=== PATIENT | female | born 1940 | race American Indian/Alaskan Native ===

== ENCOUNTER 2019-03-07 13:18 | Inpatient (IN) | payer MEDICARE ==
[2019-03-07] MEDS ORDERED: SODIUM CHLORIDE 0.9% 1000 ML 1,000 ML ONE (14:26)
[2019-03-07] MEDS ORDERED: SODIUM CHLORIDE 0.9% 500 ML 500 ML IV ONE (14:32)
[2019-03-07] MEDS ORDERED: SODIUM CHLORIDE 0.9% 1000 ML IV SOLN IV ONE (14:39)
--- NOTE | 2019-03-07 15:09 | XRay Report ---
CHEST 1 VIEW INDICATION: hypotension,weakness,possible Sepsis. COMPARISON: None. FINDINGS: Support devices: Right-sided central venous catheter tip projects at the SVC/right atrial junction. C ardiac lead projects in expected position. Heart: Cardiac silhouette is mildly enlarged. Lungs/Pleura: There is limited evaluation of the retrocardiac left lung base. Accounting for this, sharad ngs are clear. No significant effusion, no pneumothorax. IMPRESSION: 1. No acute findings. Signer Name: Abbe Casey MD Signed: 03/07/2019 3:05 PM Workstation Name: [email or web address]
[2019-03-07 15:32] LABS: Hematocrit 29.7 % (30.3-42.9); Hemoglobin 8.9 gm/dl (10.1-14.3); Mean Corpuscular HGB Conc 30 % (30-34); Mean Corpuscular Volume 86 fl (79-97); Platelet Count 328 K/mm3 (140-440); Red Blood Count 3.44 M/mm3 (3.65-5.03); Red Cell Distribution Width 17.8 % (13.2-15.2)
[2019-03-07 15:40] LABS: INR 1.31 (0.87-1.13)
[2019-03-07] MEDS ORDERED: PIPERACIL/TAZOBACTA 4.5/NS 100 4.5 GM/100 ML VIAL IV ONE (15:40)
[2019-03-07] MEDS ORDERED: VANCOMYCIN/NS 1 GM/250 ML 1 GM/250 ML BAG IV ONE (15:40)
[2019-03-07 15:51] LABS: Albumin 2.9 g/dL (3.9-5); Calcium 8.7 mg/dL (8.4-10.2)
[2019-03-07 16:03] LABS: Chol/HDL Ratio 2.1 %
[2019-03-07 16:25] LABS: Band Neutrophils # (Manual) 0.2 K/mm3; Basophils % (Manual) 0 % (0.0-1.8); Total Cells Counted 100
--- NOTE | 2019-03-07 16:25 | Emergency Department Report ---
- General Chief complaint: Weakness Stated complaint: HYPOTENSION Time Seen by Provider: 03/07/19 14:31 Source: patient, EMS Mode of arrival: Stretcher Limitations: No Limitations - History of Present Illness Initial comments: 78-year-old female with a past medical history of end-stage renal disease on dialysis, hypertension, diabetes, GERD, craniotomy for brain tumor, seizure, c ardiac stent, and pacemaker presents to the hospital for hypotension. Patient went to her dialysis center as scheduled with her blood pressure was 76/36. Patient was then sent to the ER without dialysis. Patient is lethargic and oriented to self only and knows she is at a hospital at time of my evaluation. She complains of lower back pain but unsure how chronic this is. She is overall very poor historian. Complains of abdominal pain and chest pain sometimes but denies current chest or abdominal pain. - Related Data Home Medications Medication Instructions Recorded Confirmed Last Taken Aspirin 325 mg PO DAILY 08/08/13 08/20/13 Unknown Gabapentin 300 mg PO TID 08/08/13 08/20/13 08/19/13 20:00 Iron Ag/C/B12/Ca/Suc.acid/Stom 1 tab PO DAILY 08/08/13 08/20/13 08/19/13 19:00 [Multigen Caplet] Loratadine [Claritin] 10 mg PO DAILY 08/08/13 08/20/13 08/19/13 11:00 Niacin (Nf) [Niacin] 500 mg PO DAILY 08/08/13 08/20/13 08/19/13 11:00 Potassium Chloride 10 meq PO DAILY 08/08/13 08/20/13 08/19/13 11:00 Sertraline [Zoloft] 25 mg PO DAILY 08/08/13 08/20/13 08/19/13 11:00 Simvastatin 40 mg PO DAILY 08/08/13 08/20/13 08/19/13 11:00 Topiramate [Topamax TAB] 50 mg PO HS 08/08/13 08/20/13 08/19/13 20:00 carvediloL [Coreg] 25 mg PO BID 08/08/13 08/20/13 08/20/13 07:25 hydrOXYzine HCL [Atarax] 25 mg PO TID 08/08/13 08/20/13 08/19/13 20:00 levETIRAcetam [Keppra TAB] 500 mg PO BID 08/08/13 08/20/13 08/19/13 20:00 Previous Rx's Medication Instructions Recorded Last Taken Type Acetaminophen/Codeine [Tylenol #3] 1 tab PO Q6H PRN #20 tab 08/20/13 Unknown Rx Allergies Allergy/AdvReac Type Severity Reaction Status Date / Time No Known Allergies Allergy Unverified 08/08/13 14:09 ED Review of Systems ROS: Stated complaint: HYPOTENSION Other details as noted in HPI Comment: All other systems reviewed and negative (limited) ED Past Medical Hx - Past Medical History Previous Medical History?: Yes Hx Hypertension: Yes (takes carvidolol) Hx Diabetes: Yes Hx GERD: Yes Hx Renal Disease: No Hx Arthritis: Yes Hx Seizures: Yes (had cranitomy for brain tumor) - Surgical History Hx Coronary Stent: Yes Hx Pacemaker: Yes (pt not sure why she has a pacemaker) Hx Internal Defibrillator: No - Social History Smoking Status: Never Smoker Substance Use Type: None - Medications Home Medications: Home Medications Medication Instructions Recorded Confirmed Last Taken Type Aspirin 325 mg PO DAILY 08/08/13 08/20/13 Unknown History Gabapentin 300 mg PO TID 08/08/13 08/20/13 08/19/13 20:00 History Iron Ag/C/B12/Ca/Suc.acid/Stom 1 tab PO DAILY 08/08/13 08/20/13 08/19/13 19:00 History [Multigen Caplet] Loratadine [Claritin] 10 mg PO DAILY 08/08/13 08/20/13 08/19/13 11:00 History Niacin (Nf) [Niacin] 500 mg PO DAILY 08/08/13 08/20/13 08/19/13 11:00 History Potassium Chloride 10 meq PO DAILY 08/08/13 08/20/13 08/19/13 11:00 History Sertraline [Zoloft] 25 mg PO DAILY 08/08/13 08/20/13 08/19/13 11:00 History Simvastatin 40 mg PO DAILY 08/08/13 08/20/13 08/19/13 11:00 History Topiramate [Topamax TAB] 50 mg PO HS 08/08/13 08/20/13 08/19/13 20:00 History carvediloL [Coreg] 25 mg PO BID 08/08/13 08/20/13 08/20/13 07:25 History hydrOXYzine HCL [Atarax] 25 mg PO TID 08/08/13 08/20/13 08/19/13 20:00 History levETIRAcetam [Keppra TAB] 500 mg PO BID 08/08/13 08/20/13 08/19/13 20:00 History Acetaminophen/Codeine [Tylenol #3] 1 tab PO Q6H PRN #20 tab 08/20/13 Unknown Rx ED Physical Exam - General Limitations: No Limitations - Other Other exam information: General: No acute distress Head: Atraumatic Eyes: normal appearance ENT: Moist mucous membranes Neck: Normal appearance, no midline tenderness Chest: Clear to auscultation bilaterally CV: Regular rate and rhythm Abdomen: Soft, normal bowel sounds, nontender, nondistended, no rebound or guarding Back: Normal inspection, diffuse lumbar tenderness Extremity: left leg aka Neuro: Alert O x 3, no facial asymmetry, speech clear, no gross motor sensory deficit Psych: Appropriate behavior Skin: right leg wound ED Course Vital Signs 03/07/19 03/07/19 03/07/19 14:00 14:06 14:10 Pulse Rate 67 68 Respiratory 24 26 H Rate Blood Pressure 68/29 68/29 O2 Sat by Pulse 100 100 100 Oximetry 03/07/19 03/07/19 03/07/19 14:16 14:20 15:21 Pulse Rate 71 72 73 Respiratory 19 34 H 20 Rate Blood Pressure 68/29 57/25 57/25 O2 Sat by Pulse 100 100 98 Oximetry 03/07/19 15:26 Pulse Rate 73 Respiratory 20 Rate Blood Pressure 57/25 O2 Sat by Pulse 98 Oximetry - Reevaluation(s) Reevaluation #1: 03/07/19 16:36 sbp 104 at this time after 1.5L of Normal saline. this is the pts baseline as per recent hx. 30m/kg bolus of Normal saline initially ordered at 2750ml bolus discontinued since MAP greater than 65 and no lactic acidosis so suggest septic shock. Emprically receiving vanc and zosyn 03/07/19 17:[address] sbp 70's again, fluids restarted. pt's accurate vital need to be captured into chart by nurse - Consultations Consultation #1: 03/07/19 16:23 case d/w DR Angelica smalls, familiar with pt and states recently admitted to a [facility] and had him overload and prolonged course of intubation. She had a multiple dialysis sessions performed to remove fluid and suggest that she might be dehydrated. ED Medical Decision Making - Lab Data Result diagrams: 03/07/19 15:07 03/07/19 15:07 Lab Results 03/07/19 03/07/19 03/07/19 Range/Units 15:07 15:07 15:07 WBC 17.1 H (4.5-11.0) K/mm3 RBC 3.44 L (3.65-5.03) M/mm3 Hgb 8.9 L (10.1-14.3) gm/dl Hct 29.7 L (30.3-42.9) % MCV 86 (79-97) fl MCH 26 L (28-32) pg MCHC 30 (30-34) % RDW 17.8 H (13.2-15.2) % Plt Count 328 (140-440) K/mm3 Add Manual Diff Complete Total Counted 100 Seg Neuts % (Manual) 73.0 H (40.0-70.0) % Band Neutrophils % 1.0 % Lymphocytes % (Manual) 16.0 (13.4-35.0) % Reactive Lymphs % (Man) 0 % Monocytes % (Manual) 3.0 (0.0-7.3) % Eosinophils % (Manual) 5.0 H (0.0-4.3) % Basophils % (Manual) 0 (0.0-1.8) % Metamyelocytes % 2.0 % Myelocytes % 0 % Promyelocytes % 0 % Blast Cells % 0 % Nucleated RBC % 1.0 H (0.0-0.9) % Seg Neutrophils # Man 12.5 H (1.8-7.7) K/mm3 Band Neutrophils # 0.2 K/mm3 Lymphocytes # (Manual) 2.7 (1.2-5.4) K/mm3 Abs React Lymphs (Man) 0.0 K/mm3 Monocytes # (Manual) 0.5 (0.0-0.8) K/mm3 Eosinophils # (Manual) 0.9 H (0.0-0.4) K/mm3 Basophils # (Manual) 0.0 (0.0-0.1) K/mm3 Metamyelocytes # 0.3 K/mm3 Myelocytes # 0.0 K/mm3 Promyelocytes # 0.0 K/mm3 Blast Cells # 0.0 K/mm3 WBC Morphology Not Reportable Hypersegmented Neuts Not Reportable Hyposegmented Neuts Not Reportable Hypogranular Neuts Not Reportable Smudge Cells Not Reportable Toxic Granulation Not Reportable Toxic Vacuolation Not Reportable Dohle Bodies Not Reportable Pelger-Huet Anomaly Not Reportable Dany Rods Not Reportable Platelet Estimate Consistent w auto Clumped Platelets Not Reportable Plt Clumps, EDTA Not Reportable Large Platelets Few Giant Platelets Not Reportable Platelet Satelliting Not Reportable Plt Morphology Comment Not Reportable RBC Morphology Not Reportable Dimorphic RBCs Not Reportable Polychromasia Few Hypochromasia Not Reportable Poikilocytosis Not Reportable Anisocytosis Not Reportable Microcytosis Few Macrocytosis Few Spherocytes Not Reportable Pappenheimer Bodies Not Reportable Sickle Cells Not Reportable Target Cells Not Reportable Tear Drop Cells Not Reportable Ovalocytes Not Reportable Helmet Cells Not Reportable Hernandez-[place] Bodies Not Reportable Blackwell Rings Not Reportable Jaylene Cells Not Reportable Bite Cells Not Reportable Crenated Cell Not Reportable Elliptocytes Not Reportable Acanthocytes (Spur) Not Reportable Rouleaux Not Reportable Hemoglobin C Crystals Not Reportable Schistocytes Not Reportable Malaria parasites Not Reportable Markos Bodies Not Reportable Hem Pathologist Commnt No PT 16.1 H (12.2-14.9) Sec. INR 1.31 H (0.87-1.13) VBG pH (7.320-7.420) Sodium 138 (137-145) mmol/L Potassium 4.8 (3.6-5.0) mmol/L Chloride 98.8 (98-107) mmol/L Carbon Dioxide 20 L (22-30) mmol/L Anion Gap 24 mmol/L BUN 45 H (7-17) mg/dL Creatinine 4.9 H (0.7-1.2) mg/dL Estimated GFR 10 ml/min BUN/Creatinine Ratio 9 % Glucose 110 H (65-100) mg/dL Lactic Acid (0.7-2.0) mmol/L Calcium 8.7 (8.4-10.2) mg/dL Total Bilirubin 0.50 (0.1-1.2) mg/dL AST 20 (5-40) units/L ALT 19 (7-56) units/L Alkaline Phosphatase 131 H (35-129) units/L Troponin T (0.00-0.029) ng/mL Total Protein 8.6 H (6.3-8.2) g/dL Albumin 2.9 L (3.9-5) g/dL Albumin/Globulin Ratio 0.5 % Triglycerides (2-149) mg/dL Cholesterol (50-199) mg/dL LDL Cholesterol Direct (50-130) mg/dL HDL Cholesterol (40-59) mg/dL Cholesterol/HDL Ratio % 03/07/19 03/07/19 03/07/19 Range/Units 15:07 15:07 15:14 WBC (4.5-11.0) K/mm3 RBC (3.65-5.03) M/mm3 Hgb (10.1-14.3) gm/dl Hct (30.3-42.9) % MCV (79-97) fl MCH (28-32) pg MCHC (30-34) % RDW (13.2-15.2) % Plt Count (140-440) K/mm3 Add Manual Diff Total Counted Seg Neuts % (Manual) (40.0-70.0) % Band Neutrophils % % Lymphocytes % (Manual) (13.4-35.0) % Reactive Lymphs % (Man) % Monocytes % (Manual) (0.0-7.3) % Eosinophils % (Manual) (0.0-4.3) % Basophils % (Manual) (0.0-1.8) % Metamyelocytes % % Myelocytes % % Promyelocytes % % Blast Cells % % Nucleated RBC % (0.0-0.9) % Seg Neutrophils # Man (1.8-7.7) K/mm3 Band Neutrophils # K/mm3 Lymphocytes # (Manual) (1.2-5.4) K/mm3 Abs React Lymphs (Man) K/mm3 Monocytes # (Manual) (0.0-0.8) K/mm3 Eosinophils # (Manual) (0.0-0.4) K/mm3 Basophils # (Manual) (0.0-0.1) K/mm3 Metamyelocytes # K/mm3 Myelocytes # K/mm3 Promyelocytes # K/mm3 Blast Cells # K/mm3 WBC Morphology Hypersegmented Neuts Hyposegmented Neuts Hypogranular Neuts Smudge Cells Toxic Granulation Toxic Vacuolation Dohle Bodies Pelger-Huet Anomaly Dany Rods Platelet Estimate Clumped Platelets Plt Clumps, EDTA Large Platelets Giant Platelets Platelet Satelliting Plt Morphology Comment RBC Morphology Dimorphic RBCs Polychromasia Hypochromasia Poikilocytosis Anisocytosis Microcytosis Macrocytosis Spherocytes Pappenheimer Bodies Sickle Cells Target Cells Tear Drop Cells Ovalocytes Helmet Cells Hernandez-[place] Bodies [place] Rings [place] Cells Bite Cells Crenated Cell Elliptocytes Acanthocytes (Spur) Rouleaux Hemoglobin C Crystals Schistocytes Malaria parasites Markos Bodies Hem Pathologist Commnt PT (12.2-14.9) Sec. INR (0.87-1.13) VBG pH 7.365 (7.320-7.420) Sodium (137-145) mmol/L Potassium (3.6-5.0) mmol/L Chloride (98-107) mmol/L Carbon Dioxide (22-30) mmol/L Anion Gap mmol/L BUN (7-17) mg/dL Creatinine (0.7-1.2) mg/dL Estimated GFR ml/min BUN/Creatinine Ratio % Glucose (65-100) mg/dL Lactic Acid 1.80 (0.7-2.0) mmol/L Calcium (8.4-10.2) mg/dL Total Bilirubin (0.1-1.2) mg/dL AST (5-40) units/L ALT (7-56) units/L Alkaline Phosphatase (35-129) units/L Troponin T 0.039 H (0.00-0.029) ng/mL Total Protein (6.3-8.2) g/dL Albumin (3.9-5) g/dL Albumin/Globulin Ratio % Triglycerides 122 (2-149) mg/dL Cholesterol 78 (50-199) mg/dL LDL Cholesterol Direct 19 L (50-130) mg/dL HDL Cholesterol 37 L (40-59) mg/dL Cholesterol/HDL Ratio 2.10 % - EKG Data -: EKG Interpreted by Ga EKG shows normal: sinus rhythm, ST-T waves (no stemi) Rate: normal (75) - Radiology Data Radiology results: report reviewed CHEST 1 VIEW INDICATION: hypotension,weakness,possible Sepsis. COMPARISON: None. FINDINGS: Support devices: Right-sided central venous catheter tip projects at the SVC/right atrial junction. Cardiac lead projects in expected position. Heart: Cardiac silhouette is mildly enlarged. Lungs/Pleura: There is limited evaluation of the retrocardiac left lung base. Accounting for this, lungs are clear. No significant effusion, no pneumothorax. IMPRESSION: 1. No acute findings. CT head/brain wo con INDICATION / CLINICAL INFORMATION: 78 years Female; ams, lethargic, hypotension. TECHNIQUE: Routine CT head without contrast. All CT scans at this location are performed using CT dose reduction for ALARA by means of automated exposure control. COMPARISON: 11/15/2008 FINDINGS: BRAIN / INTRACRANIAL CONTENTS: Prior, bifrontal craniectomy site noted. Underlying encephalomalacia seen in the frontal lobes - right greater than left. Ventricular catheter is seen entering the calvarium via a posterior approach with distal tip projecting towards the atrium of the right lateral ventricle. Minimal encephalomalacia is suggested along the catheter tract. Similar type findings seen on prior. There may be slight decrease in waggoner/white differentiation in the right gangliocapsular region, when compared with the left. However, similar type pattern is seen on prior and may be related to the d iscontinuity of the remaining frontal bone structures. Otherwise, no acute hemorrhage, mass effect, midline shift, hydrocephalus, or acute, large territorial infarct. There are moderate areas of decreased attenuation in the white matter of the cerebral hemispheres, as well as the gangliocapsular reg ions. These are nonspecific findings and may be related to microangiopathy (hypertension, diabetes, atherosclerosis), given the patient's age. It would be difficult to evaluate for small areas of ischemia without diffusion imaging by MRI. These findings have progressed from prior. CRANIOCERVICAL JUNCTION: No significant abnormality. ORBITS: No significant abnormality of visualized orbits. SINUSES / MASTOIDS: Prior, extensive sinus surgery noted. There is near complete opacification of the mastoid air cells. Mucosal thickening seen in the right middle ear cavity. Mild mucosal thickening seen in the left mastoid region. ADDITIONAL FINDINGS: None. IMPRESSION: 1. No focal mass, hemorrhage, hydrocephalus, or acute, large territorial infarct. Follow-up with diffusion imaging by MRI, as clinically warranted. . CT of the abdomen and pelvis without contrast INDICATION: Hypertension COMPARISON: None FINDINGS: Pacemaker lead is in place. Small pericardial effusio n is seen without pleural fluid. There is slight basilar atelectasis. There are several ill-defined hepatic low densities which are likely metastases. The spleen, pancreas and right adrenal gland are normal. Left kidney is grossly normal as well. The upper pole right kidney contains a 4.6 x 4.2 cm low density with Hounsfield units of 13 indicating this is likely a cyst. Smaller low density in the right midpole is likely a cyst as well. The left adrenal gland contains a heterogeneous 5 x 3.5 cm mass which contains fat consistent with an adrenal myelolipoma. Small gallstones are seen with distended gallbladder but no cholecystitis. No biliary tree dilation. There is no hemorrhage or adenopathy in the upper abdomen. Shunt tubing is seen over the anterior abdomen. CT of the pelvis shows evidence of left hemipelvectomy. Postoperative changes are seen with a left flank hernia containing colon but no obstruction. There is sigmoid diverticulosis without diverticulitis. Uterus has been removed. Right ovarian cyst appears present. Fat-containing ventral hernia is seen with herniated fat or lipomas in the right upper thigh. There is no pelvic hemorrhage or inflammatory process with the findings appearing to be chronic. No skeletal metastases identified. There is no aortic aneurysm seen. IMPRESSION: 1. Low density liver lesions suspicious for metastases. No definite primary tumor is seen. 2. Extensive postoperative changes in the pelvis but no inflammatory process or hemorrhage identified. 3. Multiple incidental findings as described. Automated exposure control was utilized to diminish radiation dose. - Medical Decision Making Patient initially as well as IV fluid bolus then blood pressure decreased again. . Patient treated with antibiotics for sepsis although no source of infection has been identified. Also possibility of dehydration given her recent history of aggressive dialysis due to volume overload during admission. Case discussed with telegraph office manager who states that her blood pressure prior to discharge was 100/70. Imaging results reviewed. Patient discussed with hospitalist service. Dr. Cordero to admit - Differential Diagnosis sepsis, volume depletion, anemia, Critical Care Time: No Critical care attestation.: If time is entered above; I have spent that time in minutes in the direct care of this critically ill patient, excluding procedure time. ED Disposition Clinical Impression: Hypotension, ESRD (end stage renal disease) on dialysis Disposition: OP ADMIT IP TO THIS HOSP Is pt being admited?: Yes Condition: Stable Time of Disposition: 18:01 (Dr Cordero/hosp)
[2019-03-07] MEDS ORDERED: VANCOMYCIN 1,750 MG in SODIUM CHLORIDE 0.9% 500 ML 500 ML IV ONE (16:30)
[2019-03-07 16:31] LABS: Macrocytosis Few
[2019-03-07 16:32] LABS: Large Platelets Few; Platelet Estimate Consistent w Auto
--- NOTE | 2019-03-07 17:13 | Cat Scan Report ---
CT head/brain wo con INDICATION / CLINICAL INFORMATION: 78 years Female; ams, lethargic, hypotension. TECHNIQUE: Routine CT head without contrast. All CT scans at this location are performed using CT dos e reduction for ALARA by means of automated exposure control. COMPARISON: 11/15/2008 FINDINGS: BRAIN / INTRACRANIAL CONTENTS: Prior, bifrontal craniectomy site noted. Underlying encephalomalacia s een in the frontal lobes - right greater than left. Ventricular catheter is seen entering the calvari um via a posterior approach with distal tip projecting towards the atrium of the right lateral ventri abhijeet. Minimal encephalomalacia is suggested along the catheter tract. Similar type findings seen on pr ior. There may be slight decrease in waggoner/white differentiation in the right gangliocapsular region, when compared with the left. However, similar type pattern is seen on prior and may be related to the disc ontinuity of the remaining frontal bone structures. Otherwise, no acute hemorrhage, mass effect, midline shift, hydrocephalus, or acute, large territori al infarct. There are moderate areas of decreased attenuation in the white matter of the cerebral he mispheres, as well as the gangliocapsular regions. These are nonspecific findings and may be related to microangiopathy (hypertension, diabetes, atherosclerosis), given the patient's age. It would be di fficult to evaluate for small areas of ischemia without diffusion imaging by MRI. These findings have progressed from prior. CRANIOCERVICAL JUNCTION: No significant abnormality. ORBITS: No significant abnormality of visualized orbits. SINUSES / MASTOIDS: Prior, extensive sinus surgery noted. There is near complete opacification of the mastoid air cells. Mucosal thickening seen in the right middle ear cavity. Mild mucosal thickening s een in the left mastoid region. ADDITIONAL FINDINGS: None. IMPRESSION: 1. No focal mass, hemorrhage, hydrocephalus, or acute, large territorial infarct. Follow-up with diff usion imaging by MRI, as clinically warranted. Signer Name: Shane Lange MD, III Signed: 03/07/2019 5:09 PM Workstation Name: [id number]
--- NOTE | 2019-03-07 17:23 | Cat Scan Report ---
. CT of the abdomen and pelvis without contrast INDICATION: Hypertension COMPARISON: None FINDINGS: Pacemaker lead is in place. Small pericardial effusion is seen without pleural fluid. There is slight basilar atelectasis. There are several ill-defined hepatic low densities which are likely metastases. The spleen, pancreas and right adrenal gland are normal. Left kidney is grossly normal as well. The upper pole right kidney contains a 4.6 x 4.2 cm low density with Hounsfield units of 13 in dicating this is likely a cyst. Smaller low density in the right midpole is likely a cyst as well. Th e left adrenal gland contains a heterogeneous 5 x 3.5 cm mass which contains fat consistent with an a drenal myelolipoma. Small gallstones are seen with distended gallbladder but no cholecystitis. No ursula iary tree dilation. There is no hemorrhage or adenopathy in the upper abdomen. Shunt tubing is seen o jackie the anterior abdomen. CT of the pelvis shows evidence of left hemipelvectomy. Postoperative changes are seen with a left fl ank hernia containing colon but no obstruction. There is sigmoid diverticulosis without diverticuliti s. Uterus has been removed. Right ovarian cyst appears present. Fat-containing ventral hernia is seen with herniated fat or lipomas in the right upper thigh. There is no pelvic hemorrhage or inflammator y process with the findings appearing to be chronic. No skeletal metastases identified. There is no a ortic aneurysm seen. IMPRESSION: 1. Low density liver lesions suspicious for metastases. No definite primary tumor is seen. 2. Extensive postoperative changes in the pelvis but no inflammatory process or hemorrhage identified . 3. Multiple incidental findings as described. Automated exposure control was utilized to diminish radiation dose. Signer Name: Dani Barton MD Signed: 03/07/2019 5:18 PM Workstation Name: [id number]
--- NOTE | 2019-03-07 21:18 | Consultation ---
History of Present Illness - Reason for Consult Consult date: 03/07/19 Requesting physician: SEKOU SIGALA - History of Present Illness The patient is a 78 YO female with history significant for Obesity,HTN,DM type 2,nonischemic cardiomyopathys/p AICD, CKD stage 4,Seizure disorder,Hx of Brain CAand left AKA (remote bone cancer)whopresented from the hemodialysis unit [facility] ED 03/07 with hypotension. Patient was recently admitted at [facility] between 02/02/2019 and 03/05/2019 for treatment of Septic shock, Hypoxic respiratory failure, s/p cardiac arrest, Acute encephalopathy, acute kidney injury on dialysis and anemia. Today her BP was in 70/30s in the dialysis unit. In the ED pt washypotensive and confused. She received IV fluid bolus with improvement in the BP. Labs significant for leukocytosis and creatinine 4.9. Pt was admitted for further evaluation. Nephrology was consulted for further evaluation and treatment. Past History Past Medical History: diabetes, dialysis, ESRD, hypertension, other (See HPI.) Medications and Allergies Allergies Allergy/AdvReac Type Severity Reaction Status Date / Time morphine Allergy Swelling Uncoded 03/08/19 02:11 Home Medications Medication Instructions Recorded Confirmed Last Taken Type Aspirin 325 mg PO DAILY 08/08/13 03/08/19 Unknown History Gabapentin 300 mg PO TID 08/08/13 03/08/19 08/19/13 20:00 History Iron Ag/C/B12/Ca/Suc.acid/Stom 1 tab PO DAILY 08/08/13 03/08/19 08/19/13 19:00 History [Multigen Caplet] Loratadine [Claritin] 10 mg PO DAILY 08/08/13 03/08/19 08/19/13 11:00 History Sertraline [Zoloft] 50 mg PO DAILY 08/08/13 03/08/19 08/19/13 11:00 History Simvastatin 40 mg PO DAILY 08/08/13 03/08/19 08/19/13 11:00 History Topiramate [Topamax TAB] 50 mg PO HS 08/08/13 03/08/19 08/19/13 20:00 History carvediloL [Coreg] 25 mg PO BID 08/08/13 03/08/19 08/20/13 07:25 History hydrOXYzine HCL [Atarax] 25 mg PO TID 08/08/13 03/08/19 08/19/13 20:00 History levETIRAcetam [Keppra TAB] 500 mg PO BID 08/08/13 03/08/19 08/19/13 20:00 History Acetaminophen/Codeine [Tylenol #3] 1 tab PO Q6H PRN #20 tab 08/20/13 03/08/19 Unknown Rx Indomethacin [Indocin] 50 mg PO BID PRN 03/08/19 03/08/19 Unknown History Losartan/Hydrochlorothiazide 1 each PO QDAY 03/08/19 03/08/19 Unknown History [Losartan-Hctz 50-12.5 mg Tab] Montelukast [Singulair] 10 mg PO QPM 03/08/19 03/08/19 Unknown History Potassium Chloride [K-Dur] 10 meq PO BID 03/08/19 03/08/19 Unknown History Review of Systems ROS unobtainable: due to mental status Exam - Physical Exam Narrative exam: Kelly Madrid not examined today. However the current and previous medical records are reviewed in detail as are laboratory and imaging data reviewed when appropriate. Medications being given are also reviewed. In addition the case has been discussed with the attending hospitalist and ED physician when needed.Newrenalrecommendations as below. - Constitutional Vitals: Temp Pulse Resp BP Pulse Ox 83 17 90/57 100 03/07/19 18:50 03/07/19 18:50 03/07/19 18:50 03/07/19 18:50 Results - Labs CBC & Chem 7: 03/08/19 07:27 03/08/19 07:27 Labs: Abnormal lab results 03/07/19 03/07/19 03/07/19 Range/Units 15:07 15:07 15:07 WBC 17.1 H (4.5-11.0) K/mm3 RBC 3.44 L (3.65-5.03) M/mm3 Hgb 8.9 L (10.1-14.3) gm/dl Hct 29.7 L (30.3-42.9) % MCH 26 L (28-32) pg RDW 17.8 H (13.2-15.2) % Seg Neuts % (Manual) 73.0 H (40.0-70.0) % Eosinophils % (Manual) 5.0 H (0.0-4.3) % Nucleated RBC % 1.0 H (0.0-0.9) % Seg Neutrophils # Man 12.5 H (1.8-7.7) K/mm3 Eosinophils # (Manual) 0.9 H (0.0-0.4) K/mm3 PT 16.1 H (12.2-14.9) Sec. INR 1.31 H (0.87-1.13) Carbon Dioxide 20 L (22-30) mmol/L BUN 45 H (7-17) mg/dL Creatinine 4.9 H (0.7-1.2) mg/dL Glucose 110 H (65-100) mg/dL Alkaline Phosphatase 131 H (35-129) units/L Troponin T (0.00-0.029) ng/mL Total Protein 8.6 H (6.3-8.2) g/dL Albumin 2.9 L (3.9-5) g/dL LDL Cholesterol Direct (50-130) mg/dL HDL Cholesterol (40-59) mg/dL 03/07/19 03/07/19 Range/Units 15:14 18:06 WBC (4.5-11.0) K/mm3 RBC (3.65-5.03) M/mm3 Hgb (10.1-14.3) gm/dl Hct (30.3-42.9) % MCH (28-32) pg RDW (13.2-15.2) % Seg Neuts % (Manual) (40.0-70.0) % Eosinophils % (Manual) (0.0-4.3) % Nucleated RBC % (0.0-0.9) % Seg Neutrophils # Man (1.8-7.7) K/mm3 Eosinophils # (Manual) (0.0-0.4) K/mm3 PT (12.2-14.9) Sec. INR (0.87-1.13) Carbon Dioxide (22-30) mmol/L BUN (7-17) mg/dL Creatinine (0.7-1.2) mg/dL Glucose (65-100) mg/dL Alkaline Phosphatase (35-129) units/L Troponin T 0.039 H 0.035 H (0.00-0.029) ng/mL Total Protein (6.3-8.2) g/dL Albumin (3.9-5) g/dL LDL Cholesterol Direct 19 L (50-130) mg/dL HDL Cholesterol 37 L (40-59) mg/dL Assessment and Plan 1. Acute kidney injury: VasomotorAKI superimposed on CKD in the setting ofhypotension/ septic shock. Most likely ATN. GIOVANNY, ANCA, Complements and SPEP are normal / negative. No renal recoveryso far. Renal prognosis is guarded to poor. Suspect ESRD. Avoid nephrotoxic agents. Meds dosage based on GFR. Patient is on maintenance hemodialysis since 02/08/2019. HD when BP is better. Patient will be starting outpatient hemodialysis at [facility] 03/07/2019. 2. FEN: Volume depletion,IV fluids. Anion-gap MA,2/2 PAULA. Monitor lytes. 3. Septic shock: BP is improving. Currently not on pressors. On multiple Abx. 4.H/o Cardiac arrest. 5. Acute encephalopathy. 6.Hepatic Masses. 7.Anemia: POA. S/p PRBC. Epogen with HD.
[2019-03-07] MEDS ORDERED: ACETAMINOPHEN W/CODEINE 300-30 MG TAB PO PRN (23:36)
[2019-03-07] MEDS ORDERED: ACETAMINOPHEN 325 MG TAB PO PRN (23:40)
[2019-03-07] MEDS ORDERED: HYDROmorphone 1 MG/1 ML INJ IV PRN (23:42)
[2019-03-07] MEDS ORDERED: SODIUM CHLORIDE 0.9% 1000 ML 1,000 ML IV SCH (23:45)
--- NOTE | 2019-03-07 23:50 | History and Physical Report ---
History of Present Illness Date of examination: 03/07/19 Date of admission: 03/07/2019 Chief complaint: Severe hypotension History of present illness: 78-year-old -[place] female with history of end-stage renal disease on hemodialysis, hypertension, diabetes, GERD, seizures, cardiac stent and pacemaker sent in for low blood pressure 88 in the emergency room patient blood pressure was 68/29. Patient is lethargic and oriented to self only. Patient feels lightheaded. Complains of abdominal pain and chest pain sometimes. No fever or chills Past Medical History Previous Medical History?: Yes Hypertension: Yes (takes carvidolol) Diabetes: Yes GERD: Yes Renal Disease: No Arthritis: Yes Seizures: Yes (had cranitomy for brain tumor) Surgical History Coronary Stent: Yes Pacemaker: Yes (pt not sure why she has a pacemaker) Social History Smoking Status: Never Smoker Substance Use Type: None Family history Htn Medications Home Medications: Home Medications Medication Instructions Recorded Confirmed Last Taken Type Aspirin 325 mg PO DAILY 08/08/13 08/20/13 Unknown History Gabapentin 300 mg PO TID 08/08/13 08/20/13 08/19/13 20:00 History Iron Ag/C/B12/Ca/Suc.acid/Stom 1 tab PO DAILY 08/08/13 08/20/13 08/19/13 19:00 History [Multigen Caplet] Loratadine [Claritin] 10 mg PO DAILY 08/08/13 08/20/13 08/19/13 11:00 History Niacin (Nf) [Niacin] 500 mg PO DAILY 08/08/13 08/20/13 08/19/13 11:00 History Potassium Chloride 10 meq PO DAILY 08/08/13 08/20/13 08/19/13 11:00 History Sertraline [Zoloft] 25 mg PO DAILY 08/08/13 08/20/13 08/19/13 11:00 History Simvastatin 40 mg PO DAILY 08/08/13 08/20/13 08/19/13 11:00 History Topiramate [Topamax TAB] 50 mg PO HS 08/08/13 08/20/13 08/19/13 20:00 History carvediloL [Coreg] 25 mg PO BID 08/08/13 08/20/13 08/20/13 07:25 History hydrOXYzine HCL [Atarax] 25 mg PO TID 08/08/13 08/20/13 08/19/13 20:00 History levETIRAcetam [Keppra TAB] 500 mg PO BID 08/08/13 08/20/13 08/19/13 20:00 History Acetaminophen/Codeine [Tylenol #3] 1 tab PO Q6H PRN #20 tab 08/20/13 Unknown Rx Review of Systems ROS: Stated complaint: HYPOTENSION Other details as noted in HPI Comment: All other systems reviewed and negative (limited) Medications and Allergies Allergies Allergy/AdvReac Type Severity Reaction Status Date / Time No Known Allergies Allergy Unverified 08/08/13 14:09 Home Medications Medication Instructions Recorded Confirmed Last Taken Type Aspirin 325 mg PO DAILY 08/08/13 08/20/13 Unknown History Gabapentin 300 mg PO TID 08/08/13 08/20/13 08/19/13 20:00 History Iron Ag/C/B12/Ca/Suc.acid/Stom 1 tab PO DAILY 08/08/13 08/20/13 08/19/13 19:00 History [Multigen Caplet] Loratadine [Claritin] 10 mg PO DAILY 08/08/13 08/20/13 08/19/13 11:00 History Niacin (Nf) [Niacin] 500 mg PO DAILY 08/08/13 08/20/13 08/19/13 11:00 History Potassium Chloride 10 meq PO DAILY 08/08/13 08/20/13 08/19/13 11:00 History Sertraline [Zoloft] 25 mg PO DAILY 08/08/13 08/20/13 08/19/13 11:00 History Simvastatin 40 mg PO DAILY 08/08/13 08/20/13 08/19/13 11:00 History Topiramate [Topamax TAB] 50 mg PO HS 08/08/13 08/20/13 08/19/13 20:00 History carvediloL [Coreg] 25 mg PO BID 08/08/13 08/20/13 08/20/13 07:25 History hydrOXYzine HCL [Atarax] 25 mg PO TID 08/08/13 08/20/13 08/19/13 20:00 History levETIRAcetam [Keppra TAB] 500 mg PO BID 05/11/1408/20/13 08/19/13 20:00 History Acetaminophen/Codeine [Tylenol #3] 1 tab PO Q6H PRN #20 tab 08/20/13 Unknown Rx Exam - Constitutional Vitals: Temp Pulse Resp BP Pulse Ox 78 18 68/29 100 03/07/19 23:16 03/07/19 23:16 03/07/19 23:16 03/07/19 23:16 General appearance: Present: no acute distress, well-nourished - EENT Eyes: Present: PERRL ENT: hearing intact, clear oral mucosa - Neck Neck: Present: supple, normal ROM - Respiratory Respiratory effort: normal Respiratory: bilateral: CTA - Cardiovascular Heart rate: 78 Rhythm: regular Heart Sounds: Present: S1 & S2. Absent: rub, click - Extremities Extremities: pulses symmetrical, No edema Extremity abnormal: other (left lower extremity amputation from the hip joint) Peripheral Pulses: within normal limits - Abdominal General gastrointestinal: Present: soft, non-tender, non-distended, normal bowel sounds Female genitourinary: Present: normal - Rectal Rectal Exam: deferred - Integumentary Integumentary: Present: clear, warm, dry - Musculoskeletal Musculoskeletal: gait normal, strength equal bilaterally - Psychiatric Psychiatric: appropriate mood/affect, intact judgment & insight - Neurologic Neurologic: CNII-XII intact, other (left lower extremity amputated) - Allied Health Allied health notes reviewed: nursing Results - Labs CBC & Chem 7: 03/07/19 15:07 03/07/19 15:07 Labs: Laboratory Last Values WBC 17.1 K/mm3 (4.5-11.0) H 03/07/19 15:07 RBC 3.44 M/mm3 (3.65-5.03) L 03/07/19 15:07 Hgb 8.9 gm/dl (10.1-14.3) L 03/07/19 15:07 Hct 29.7 % (30.3-42.9) L 03/07/19 15:07 MCV 86 fl (79-97) 03/07/19 15:07 MCH 26 pg (28-32) L 03/07/19 15:07 MCHC 30 % (30-34) 03/07/19 15:07 RDW 17.8 % (13.2-15.2) H 03/07/19 15:07 Plt Count 328 K/mm3 (140-440) 03/07/19 15:07 Add Manual Diff Complete 03/07/19 15:07 Total Counted 100 03/07/19 15:07 Seg Neuts % (Manual) 73.0 % (40.0-70.0) H 03/07/19 15:07 Band Neutrophils % 1.0 % 03/07/19 15:07 Lymphocytes % (Manual) 16.0 % (13.4-35.0) 03/07/19 15:07 Reactive Lymphs % (Man) 0 % 03/07/19 15:07 Monocytes % (Manual) 3.0 % (0.0-7.3) 03/07/19 15:07 Eosinophils % (Manual) 5.0 % (0.0-4.3) H 03/07/19 15:07 Basophils % (Manual) 0 % (0.0-1.8) 03/07/19 15:07 Metamyelocytes % 2.0 % 03/07/19 15:07 Myelocytes % 0 % 03/07/19 15:07 Promyelocytes % 0 % 03/07/19 15:07 Blast Cells % 0 % 03/07/19 15:07 Nucleated RBC % 1.0 % (0.0-0.9) H 03/07/19 15:07 Seg Neutrophils # Man 12.5 K/mm3 (1.8-7.7) H 03/07/19 15:07 Band Neutrophils # 0.2 K/mm3 03/07/19 15:07 Lymphocytes # (Manual) 2.7 K/mm3 (1.2-5.4) 03/07/19 15:07 Abs React Lymphs (Man) 0.0 K/mm3 03/07/19 15:07 Monocytes # (Manual) 0.5 K/mm3 (0.0-0.8) 03/07/19 15:07 Eosinophils # (Manual) 0.9 K/mm3 (0.0-0.4) H 03/07/19 15:07 Basophils # (Manual) 0.0 K/mm3 (0.0-0.1) 03/07/19 15:07 Metamyelocytes # 0.3 K/mm3 03/07/19 15:07 Myelocytes # 0.0 K/mm3 03/07/19 15:07 Promyelocytes # 0.0 K/mm3 03/07/19 15:07 Blast Cells # 0.0 K/mm3 03/07/19 15:07 WBC Morphology Not Reportable 03/07/19 15:07 Hypersegmented Neuts Not Reportable 03/07/19 15:07 Hyposegmented Neuts Not Reportable 03/07/19 15:07 Hypogranular Neuts Not Reportable 03/07/19 15:07 Smudge Cells Not Reportable 03/07/19 15:07 Toxic Granulation Not Reportable 03/07/19 15:07 Toxic Vacuolation Not Reportable 03/07/19 15:07 Dohle Bodies Not Reportable 03/07/19 15:07 Pelger-Huet Anomaly Not Reportable 03/07/19 15:07 Dany Rods Not Reportable 03/07/19 15:07 Platelet Estimate Consistent w auto 03/07/19 15:07 Clumped Platelets Not Reportable 03/07/19 15:07 Plt Clumps, EDTA Not Reportable 03/07/19 15:07 Large Platelets Few 03/07/19 15:07 Giant Platelets Not Reportable 03/07/19 15:07 Platelet Satelliting Not Reportable 03/07/19 15:07 Plt Morphology Comment Not Reportable 03/07/19 15:07 RBC Morphology Not Reportable 03/07/19 15:07 Dimorphic RBCs Not Reportable 03/07/19 15:07 Polychromasia Few 03/07/19 15:07 Hypochromasia Not Reportable 03/07/19 15:07 Poikilocytosis Not Reportable 03/07/19 15:07 Anisocytosis Not Reportable 03/07/19 15:07 Microcytosis Few 03/07/19 15:07 Macrocytosis Few 03/07/19 15:07 Spherocytes Not Reportable 03/07/19 15:07 Pappenheimer Bodies Not Reportable 03/07/19 15:07 Sickle Cells Not Reportable 03/07/19 15:07 Target Cells Not Reportable 03/07/19 15:07 Tear Drop Cells Not Reportable 03/07/19 15:07 Ovalocytes Not Reportable 03/07/19 15:07 Helmet Cells Not Reportable 03/07/19 15:07 Hernandez-Loring Bodies Not Reportable 03/07/19 15:07 [place] Rings Not Reportable 03/07/19 15:07 Jaylene Cells Not Reportable 03/07/19 15:07 Bite Cells Not Reportable 03/07/19 15:07 Crenated Cell Not Reportable 03/07/19 15:07 Elliptocytes Not Reportable 03/07/19 15:07 Acanthocytes (Spur) Not Reportable 03/07/19 15:07 Rouleaux Not Reportable 03/07/19 15:07 Hemoglobin C Crystals Not Reportable 03/07/19 15:07 Schistocytes Not Reportable 03/07/19 15:07 Malaria parasites Not Reportable 03/07/19 15:07 Markos Bodies Not Reportable 03/07/19 15:07 Hem Pathologist Commnt No 03/07/19 15:07 PT 16.1 Sec. (12.2-14.9) H 03/07/19 15:07 INR 1.31 (0.87-1.13) H 03/07/19 15:07 VBG pH 7.365 (7.320-7.420) 03/07/19 15:07 Sodium 138 mmol/L (137-145) 03/07/19 15:07 Potassium 4.8 mmol/L (3.6-5.0) 03/07/19 15:07 Chloride 98.8 mmol/L (98-107) 03/07/19 15:07 Carbon Dioxide 20 mmol/L (22-30) L 03/07/19 15:07 Anion Gap 24 mmol/L 03/07/19 15:07 BUN 45 mg/dL (7-17) H 03/07/19 15:07 Creatinine 4.9 mg/dL (0.7-1.2) H 03/07/19 15:07 Estimated GFR 10 ml/min 03/07/19 15:07 BUN/Creatinine Ratio 9 % 03/07/19 15:07 Glucose 110 mg/dL (65-100) H 03/07/19 15:07 Lactic Acid 1.10 mmol/L (0.7-2.0) 03/07/19 18:06 Calcium 8.7 mg/dL (8.4-10.2) 03/07/19 15:07 Total Bilirubin 0.50 mg/dL (0.1-1.2) 03/07/19 15:07 AST 20 units/L (5-40) 03/07/19 15:07 ALT 19 units/L (7-56) 03/07/19 15:07 Alkaline Phosphatase 131 units/L (35-129) H 03/07/19 15:07 Troponin T 0.031 ng/mL (0.00-0.029) H 03/07/19 20:52 Total Protein 8.6 g/dL (6.3-8.2) H 03/07/19 15:07 Albumin 2.9 g/dL (3.9-5) L 03/07/19 15:07 Albumin/Globulin Ratio 0.5 % 03/07/19 15:07 Triglycerides 122 mg/dL (2-149) 03/07/19 15:14 Cholesterol 78 mg/dL (50-199) 03/07/19 15:14 LDL Cholesterol Direct 19 mg/dL (50-130) L 03/07/19 15:14 HDL Cholesterol 37 mg/dL (40-59) L 03/07/19 15:14 Cholesterol/HDL Ratio 2.10 % 03/07/19 15:14 Short CBC 03/07/19 Range/Units 15:07 WBC 17.1 H (4.5-11.0) K/mm3 Hgb 8.9 L (10.1-14.3) gm/dl Hct 29.7 L (30.3-42.9) % Plt Count 328 (140-440) K/mm3 BMP 03/07/19 15:07 Sodium 138 Potassium 4.8 Chloride 98.8 Carbon Dioxide 20 L BUN 45 H Creatinine 4.9 H Glucose 110 H Calcium 8.7 Cardiac Enzymes 03/07/19 03/07/19 03/07/19 Range/Units 15:14 18:06 20:52 Troponin T 0.039 H 0.035 H 0.031 H (0.00-0.029) ng/mL Liver Function 03/07/19 Range/Units 15:07 Total Bilirubin 0.50 (0.1-1.2) mg/dL AST 20 (5-40) units/L ALT 19 (7-56) units/L Alkaline Phosphatase 131 H (35-129) units/L Albumin 2.9 L (3.9-5) g/dL - Imaging and Cardiology Chest x-ray: report reviewed (no acute findings) CT scan - abdomen: report reviewed Imaging and Cardiology: CT abdomen IMPRESSION: 1. Low density liver lesions suspicious for metastases. No definite primary tumor is seen. 2. Extensive postoperative changes in the pelvis but no inflammatory process or hemorrhage identified. 3. Multiple incidental findings as described. Automated exposure control was utilized to diminish radiation dose. Head CT IMPRESSION: 1. No focal mass, hemorrhage, hydrocephalus, or acute, large territorial infarct. Follow-up with diffusion imaging by MRI, as clinically warranted. Assessment and Plan Assessment and plan: Sepsis IV antibiotics for now Advance Directives: Yes (full code) VTE prophylaxis?: Chemical Plan of care discussed with patient/family: Yes - Patient Problems (1) Sepsis Current Visit: Yes Status: Acute Plan to address problem: IV antibiotics for now Pending cultures (2) ESRD (end stage renal disease) on dialysis Current Visit: Yes Status: Acute Plan to address problem: Continue dialysis (3) Hypotension Current Visit: Yes Status: Acute Plan to address problem: IV fluids for now Pressors if necessary Sepsis may be the etiology (4) Hypertension Current Visit: Yes Status: Acute Qualifiers: Hypertension type: essential hypertension Qualified Code(s): I10 - Essential (primary) hypertension Plan to address problem: We will hold the antihypertensives (5) Seizure disorder Current Visit: Yes Status: Chronic Plan to address problem: Continue to Keppra (6) Hyperlipidemia Current Visit: Yes Status: Chronic Qualifiers: Hyperlipidemia type: mixed hyperlipidemia Qualified Code(s): E78.2 - Mixed hyperlipidemia Plan to address problem: Continue statins (7) DVT prophylaxis Current Visit: Yes Status: Acute Plan to address problem: Continue heparin and GI prophylaxis
[2019-03-08] MEDS ORDERED: levETIRAcetam 500 MG TAB PO ONE (00:29)
[2019-03-08] MEDS ORDERED: HEPARIN 5,000 UNIT/1 ML VIAL ONE (00:29)
[2019-03-08] MEDS: levETIRAcetam 500 MG TAB PO SCH ×3 (00:33→21:58)
[2019-03-08] MEDS: carvediloL 25 MG TAB PO SCH ×3 (00:34→21:58)
[2019-03-08] MEDS: HEPARIN 5,000 UNIT/1 ML VIAL SUB-Q SCH ×3 (00:34→21:58)
[2019-03-08] MEDS ORDERED: VANCOMYCIN PHARMACY TO DOSE IV SCH (01:00)
[2019-03-08] MEDS ORDERED: CEFEPIME/NS 1 GM/100 ML 1 GM/100 ML BAG IV SCH (01:00)
[2019-03-08] MEDS: oxyCODONE /ACETAMINOPHEN 5-325MG TAB PO PRN (03:01)
[2019-03-08] MEDS: CEFEPIME/NS 1 GM/100 ML 1 GM/100 ML BAG IV SCH (04:30)
[2019-03-08] MEDS: hydrOXYzine HCL 25 MG TAB PO SCH ×3 (07:50→21:58)
[2019-03-08] MEDS: GABAPENTIN 300 MG CAP PO SCH ×2 (07:50→15:41)
[2019-03-08 08:21] LABS: Hematocrit 27.3 % (30.3-42.9); Hemoglobin 8.7 gm/dl (10.1-14.3); Mean Corpuscular HGB Conc 32 % (30-34); Mean Corpuscular Volume 84 fl (79-97); Red Blood Count 3.25 M/mm3 (3.65-5.03)
[2019-03-08 08:35] LABS: Calcium 8.4 mg/dL (8.4-10.2)
[2019-03-08] MEDS ORDERED: SODIUM CHLORIDE 0.9% 100 ML IV PRN ×2 (09:14→09:18)
[2019-03-08] MEDS ORDERED: EPOETIN ALFA 10,000 UNIT/1 ML INJ SUB-Q PRN (09:14)
[2019-03-08] MEDS ORDERED: NON-FORMULARY EACH (Potassium Chloride [Potassium Chloride] 10 MEQ) PO SCH (10:00)
[2019-03-08] MEDS ORDERED: NIACIN 500 MG PO SCH (10:00)
[2019-03-08] MEDS ORDERED: NON-FORMULARY EACH (Simvastatin [Simvastatin] 40 MG) PO SCH (10:00)
[2019-03-08] MEDS: LORATADINE (NF) 10 MG TAB PO SCH (10:15)
[2019-03-08] MEDS: ASPIRIN 325 MG TAB PO SCH (10:15)
[2019-03-08] MEDS: SERTRALINE 25 MG TAB PO SCH (10:15)
[2019-03-08] MEDS: POTASSIUM CHLORIDE ER 10 MEQ TAB PO SCH (10:15)
[2019-03-08] MEDS: NIACIN ER 500 MG TAB PO SCH (10:15)
[2019-03-08 11:38] LABS: Band Neutrophils # (Manual) 0.2 K/mm3; Basophils % (Manual) 0 % (0.0-1.8); Large Platelets Few; Macrocytosis Few; Platelet Estimate Consistent w Auto; Total Cells Counted 100
[2019-03-08 12:00] LABS: Platelet Count 312 K/mm3 (140-440)
[2019-03-08 14:09] LABS: Hepatitis B Surface Antigen Non-Reactive (Negative); Hepatitis C Virus Antibody Non-Reactive (NonReactive)
--- NOTE | 2019-03-08 14:54 | Progress Note ---
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 In emergency room, her systolic blood pressure was 68/29. Patient was at [facility] and suffered 2 cardiac arrest per daughter Lety at bedside. She went to [facility] but was only there for 2-3 days prior to coming here. The Hemodialysis center sent her here instead of [facility]. She has a huge left forearm ulcer with large scab. Patient is confused. * Chest x-ray: report reviewed (no acute findings) * CT abdomen IMPRESSION: 1. Low density liver lesions suspicious for metastases. No definite primary tumor is seen. 2. Extensive postoperative changes in the pelvis but no inflammatory process or hemorrhage identified. 3. Multiple incidental findings as described. * CT head IMPRESSION: 1. No focal mass, hemorrhage, hydrocephalus, or acute, large territorial infarct. Follow-up with diffusion imaging by MRI, as clinically warranted. Hypotension: gentle IVF treatment ESRD on HD: Nephrology is following Acute hypoxic respiratory failure: continue to try to wean the 3.5 liters of nasal cannula O2 Acute Metabolic encephalopathy SIRS with organ dysfunction, no sepsis source of infection found so far: on empiric abx, follow cultures Seizure disorder Continue to Keppra DVT prophylaxis: Continue heparin Abnormal CT abd/pelvis with liver mass: consult GI History Interval history: Patient was seen and examined. Follow-up on current diagnosis of hypotension. No overnight events reported to me. Imaging, nursing note, chart, labs and old chart reviewed. Hospitalist Physical - Physical exam Narrative exam: Gen: chronic ill appearing, NAD, Awake, Alert, Orientated x 1 HEENT: NCAT, EOMI, PERRL, OP Clear Neck: supple, no adenopathy, no thyromegaly, no JVD CVS/Heart: RRR, normal S1S2, pulses present bilaterally Chest/Lungs: diminished bs bilateral, Symmetrical chest expansion, good air entry bilaterally GI/Abdomen: soft, NTND, good bowel sounds, no guarding or rebound /Bladder: no suprapubic tenderness, no CVA or paraspinal tenderness Extermity/Skin: multiple skin breakdowns, left forearm, sacrum MSK: FROM x 3, total left leg amputation Neuro: CN 2-12 grossly intact, doesn't follow all commands Psych: calm but confused - Constitutional Vitals: Temp Pulse Resp BP Pulse Ox 97.4 F L 79 18 111/67 96 03/08/19 01:29 03/08/19 05:20 03/08/19 04:00 03/08/19 01:29 03/08/19 01:25 General appearance: Present: no acute distress, well-nourished Results - Labs CBC & Chem 7: 03/08/19 07:27 03/08/19 07:27 Labs: Laboratory Last Values WBC 16.0 K/mm3 (4.5-11.0) H 03/08/19 07:27 RBC 3.25 M/mm3 (3.65-5.03) L 03/08/19 07:27 Hgb 8.7 gm/dl (10.1-14.3) L 03/08/19 07:27 Hct 27.3 % (30.3-42.9) L 03/08/19 07:27 MCV 84 fl (79-97) 03/08/19 07:27 MCH 27 pg (28-32) L 03/08/19 07:27 MCHC 32 % (30-34) 03/08/19 07:27 RDW 17.0 % (13.2-15.2) H 03/08/19 07:27 Plt Count 312 K/mm3 (140-440) 03/08/19 07:27 Add Manual Diff Complete 03/08/19 07:27 Total Counted 100 03/08/19 07:27 Seg Neuts % (Manual) 86.0 % (40.0-70.0) H 03/08/19 07:27 Band Neutrophils % 1.0 % 03/08/19 07:27 Lymphocytes % (Manual) 7.0 % (13.4-35.0) L 03/08/19 07:27 Reactive Lymphs % (Man) 0 % 03/08/19 07:27 Monocytes % (Manual) 3.0 % (0.0-7.3) 03/08/19 07:27 Eosinophils % (Manual) 2.0 % (0.0-4.3) 03/08/19 07:27 Basophils % (Manual) 0 % (0.0-1.8) 03/08/19 07:27 Metamyelocytes % 1.0 % 03/08/19 07:27 Myelocytes % 0 % 03/08/19 07:27 Promyelocytes % 0 % 03/08/19 07:27 Blast Cells % 0 % 03/08/19 07:27 Nucleated RBC % Not Reportable 03/08/19 07:27 Seg Neutrophils # Man 13.8 K/mm3 (1.8-7.7) H 03/08/19 07:27 Band Neutrophils # 0.2 K/mm3 03/08/19 07:27 Lymphocytes # (Manual) 1.1 K/mm3 (1.2-5.4) L 03/08/19 07:27 Abs React Lymphs (Man) 0.0 K/mm3 03/08/19 07:27 Monocytes # (Manual) 0.5 K/mm3 (0.0-0.8) 03/08/19 07:27 Eosinophils # (Manual) 0.3 K/mm3 (0.0-0.4) 03/08/19 07:27 Basophils # (Manual) 0.0 K/mm3 (0.0-0.1) 03/08/19 07:27 Metamyelocytes # 0.2 K/mm3 03/08/19 07:27 Myelocytes # 0.0 K/mm3 03/08/19 07:27 Promyelocytes # 0.0 K/mm3 03/08/19 07:27 Blast Cells # 0.0 K/mm3 03/08/19 07:27 WBC Morphology Not Reportable 03/08/19 07:27 Hypersegmented Neuts Not Reportable 03/08/19 07:27 Hyposegmented Neuts Not Reportable 03/08/19 07:27 Hypogranular Neuts Not Reportable 03/08/19 07:27 Smudge Cells Not Reportable 03/08/19 07:27 Toxic Granulation Not Reportable 03/08/19 07:27 Toxic Vacuolation Not Reportable 03/08/19 07:27 Dohle Bodies Not Reportable 03/08/19 07:27 Pelger-Huet Anomaly Not Reportable 03/08/19 07:27 Dany Rods Not Reportable 03/08/19 07:27 Platelet Estimate Consistent w auto 03/08/19 07:27 Clumped Platelets Not Reportable 03/08/19 07:27 Plt Clumps, EDTA Not Reportable 03/08/19 07:27 Large Platelets Few 03/08/19 07:27 Giant Platelets Not Reportable 03/08/19 07:27 Platelet Satelliting Not Reportable 03/08/19 07:27 Plt Morphology Comment Not Reportable 03/08/19 07:27 RBC Morphology Not Reportable 03/08/19 07:27 Dimorphic RBCs Not Reportable 03/08/19 07:27 Polychromasia Few 03/08/19 07:27 Hypochromasia Not Reportable 03/08/19 07:27 Poikilocytosis Not Reportable 03/08/19 07:27 Anisocytosis Not Reportable 03/08/19 07:27 Microcytosis Few 03/08/19 07:27 Macrocytosis Few 03/08/19 07:27 Spherocytes Not Reportable 03/08/19 07:27 Pappenheimer Bodies Not Reportable 03/08/19 07:27 Sickle Cells Not Reportable 03/08/19 07:27 Target Cells Not Reportable 03/08/19 07:27 Tear Drop Cells Not Reportable 03/08/19 07:27 Ovalocytes Not Reportable 03/08/19 07:27 Helmet Cells Not Reportable 03/08/19 07:27 [place] Bodies Not Reportable 03/08/19 07:27 [place] Rings Not Reportable 03/08/19 07:27 Jaylene Cells Not Reportable 03/08/19 07:27 Bite Cells Not Reportable 03/08/19 07:27 Crenated Cell Not Reportable 03/08/19 07:27 Elliptocytes Not Reportable 03/08/19 07:27 Acanthocytes (Spur) Not Reportable 03/08/19 07:27 Rouleaux Not Reportable 03/08/19 07:27 Hemoglobin C Crystals Not Reportable 03/08/19 07:27 Schistocytes Not Reportable 03/08/19 07:27 Malaria parasites Not Reportable 03/08/19 07:27 Markos Bodies Not Reportable 03/08/19 07:27 Hem Pathologist Commnt No 03/08/19 07:27 PT 16.1 Sec. (12.2-14.9) H 03/07/19 15:07 INR 1.31 (0.87-1.13) H 03/07/19 15:07 VBG pH 7.365 (7.320-7.420) 03/07/19 15:07 Sodium 142 mmol/L (137-145) 03/08/19 07:27 Potassium 4.7 mmol/L (3.6-5.0) 03/08/19 07:27 Chloride 103.8 mmol/L (98-107) 03/08/19 07:27 Carbon Dioxide 22 mmol/L (22-30) 03/08/19 07:27 Anion Gap 21 mmol/L 03/08/19 07:27 BUN 51 mg/dL (7-17) H 03/08/19 07:27 Creatinine 4.6 mg/dL (0.7-1.2) H 03/08/19 07:27 Estimated GFR 11 ml/min 03/08/19 07:27 BUN/Creatinine Ratio 11 % 03/08/19 07:27 Glucose 81 mg/dL (65-100) 03/08/19 07:27 Hemoglobin A1c 5.7 % (4-6) 03/08/19 00:03 Lactic Acid 1.10 mmol/L (0.7-2.0) 03/07/19 18:06 Calcium 8.4 mg/dL (8.4-10.2) 03/08/19 07:27 Phosphorus 5.70 mg/dL (2.5-4.5) H 03/08/19 07:27 Total Bilirubin 0.50 mg/dL (0.1-1.2) 03/07/19 15:07 AST 20 units/L (5-40) 03/07/19 15:07 ALT 19 units/L (7-56) 03/07/19 15:07 Alkaline Phosphatase 131 units/L (35-129) H 03/07/19 15:07 Troponin T 0.031 ng/mL (0.00-0.029) H 03/07/19 20:52 Total Protein 8.6 g/dL (6.3-8.2) H 03/07/19 15:07 Albumin 2.9 g/dL (3.9-5) L 03/07/19 15:07 Albumin/Globulin Ratio 0.5 % 03/07/19 15:07 Triglycerides 122 mg/dL (2-149) 03/07/19 15:14 Cholesterol 78 mg/dL (50-199) 03/07/19 15:14 LDL Cholesterol Direct 19 mg/dL (50-130) L 03/07/19 15:14 HDL Cholesterol 37 mg/dL (40-59) L 03/07/19 15:14 Cholesterol/HDL Ratio 2.10 % 03/07/19 15:14 Hepatitis A IgM Ab Non-reactive (NonReactive) 03/08/19 10:24 Hep Bs Antigen Non-reactive (Negative) 03/08/19 10:24 Hep B Core IgM Ab Non-reactive (NonReactive) 03/08/19 10:24 Hepatitis C Antibody Non-reactive (NonReactive) 03/08/19 10:24 Active Medications - Current Medications Current Medications: Generic Name Dose Route Start Last Admin Trade Name Freq PRN Reason Stop Dose Admin Acetaminophen 650 mg 03/07/19 23:40 Tylenol PO Q4H PRN Pain MILD(1-3)/Fever >100.5/GRAY Aspirin 325 mg 03/08/19 10:00 03/08/19 10:15 Aspirin PO 325 mg DAILY [facility] Administration Carvedilol 25 mg 03/07/19 23:45 03/08/19 00:34 Coreg PO Not Given BID [facility] Epoetin Jordan 10,000 unit 03/08/19 09:14 Procrit SUB-Q TASHA PRN hemodialysis Gabapentin 300 mg 03/08/19 08:00 03/08/19 07:50 Gabapentin PO 300 mg TID [facility] Administration Heparin Sodium (Porcine) 5,000 unit 03/07/19 23:45 03/08/19 10:14 Heparin SUB-Q 5,000 unit Q12HR [facility] Administration Hydromorphone HCl 0.25 mg 03/07/19 23:42 Dilaudid IV Q3H PRN Pain, Moderate (4-6) Hydroxyzine HCl 25 mg 03/08/19 08:00 03/08/19 07:50 Atarax PO 25 mg TID [facility] Administration Cefepime HCl 1 gm in 100 mls @ 200 mls/hr 03/08/19 01:00 03/08/19 04:30 Cefepime/Ns 1 Gm/100 Ml IV 200 mls/hr Q24H [facility] Administration Protocol Sodium Chloride 100 mls @ 999 mls/hr 03/08/19 09:14 Nacl 0.9% IV TASHA PRN Hypotension Levetiracetam 500 mg 03/07/19 23:45 03/08/19 10:15 Keppra PO 500 mg BID [facility] Administration Loratadine 10 mg 03/08/19 10:00 03/08/19 10:15 Claritin PO 10 mg DAILY [facility] Administration Niacin 500 mg 03/08/19 10:00 03/08/19 10:15 Niaspan Er PO 500 mg DAILY [facility] Administration Ondansetron HCl 4 mg 03/07/19 23:40 Zofran IV Q8H PRN Nausea And Vomiting Oxycodone/Acetaminophen 1 tab 03/07/19 23:42 03/08/19 03:01 Percocet 5/325 PO 1 tab Q6H PRN Administration Pain, Moderate (4-6) Potassium Chloride 10 meq 03/08/19 10:00 03/08/19 10:15 K-Dur PO 10 meq QDAY [facility] Administration Pravastatin Sodium 80 mg 03/08/19 22:00 Pravachol PO QHS [facility] Sertraline HCl 25 mg 03/08/19 10:00 03/08/19 10:15 Zoloft PO 25 mg DAILY [facility] Administration Sodium Chloride 10 ml 03/08/19 10:00 03/08/19 09:31 Sodium Chloride Flush Syringe 10 Ml IV Not Given BID [facility] Sodium Chloride 10 ml 03/07/19 23:40 Sodium Chloride Flush Syringe 10 Ml IV PRN PRN LINE FLUSH Topiramate 50 mg 03/08/19 22:00 Topamax PO QHS [facility] Nutrition/Malnutrition Assess - Dietary Evaluation Nutrition/Malnutrition Findings: Nutrition Notes Start: 03/08/19 12:58 Freq: Status: Active Protocol: Document 03/08/19 12:58 KS (Rec: 03/08/19 13:12 KS [id number]) Co-Sign 03/08/19 12:58 LP Nutrition Notes Need for Assessment generated from: dietary director Initial or Follow up Assessment Current Diagnosis CKD (stage V CKD),Diabetes, Hypertension Other Pertinent Diagnosis on HD, craniotomy for brain tumor, seizures, cardiac stent , pacemaker Current Diet Renal Diet Labs/Tests CO2 20 BUN 45 CR 4.9 Glu 110 Pertinent Medications Reviewed Height 5 ft 5 in Weight 98.2 kg Felt Body Weight (kg) 56.81 BMI 36.0 Intake Prior to Admission Good Weight Status Obese Subjective/Other Information RN screen for difficulty chewing. Pt unsure if she has lost or gained any wt recently . Pt consumed 25% of breakfast tray this morning. States appetite has been decreased for "a few days." Pt states she is in pain from being consipated, requests laxative. Pt denies difficulty chewing or swallowing. Pt open to trying Nepro ONS. Burn Absent Trauma Absent GI Symptoms Constipation Current % PO Poor (25-49%) Minimum of two criteria No physical signs of malnutrition #1 Nutrition Diagnosis Inadequate oral intake Etiology decreased appetite, constipation As Evidenced by Signs and Symptoms pt consuming 25% of meals Is patient on ventilator? No Is Patient Ambulatory and/or Out of Bed Yes REE-([facility]-ambulatory/OOB) [ 1895.244 [id number]] Calculation Used for Recommendations [facility] Additional Notes PRO: >118g/day (>1.2g/kg/day) Fluid: 1000-1500mL/day or per Nutrition Intervention Change Diet Order: Continue current diet Add Supplement/Snack (indicate name/kcal Nepro BID /protein ) Provides kCal: 850 Provides Protein (gm) 38 Goal #1 Meet at least 75% of energy and PRO needs via PO and ONS intakes Anticipated Discharge Needs: Renal diet Follow-Up By: 03/12/19 Additional Comments Follow for PO and ONS intakes
--- NOTE | 2019-03-08 15:04 | Progress Note ---
Assessment and Plan 1. Acute kidney injury: VasomotorAKI superimposed on CKD stage 4 in the setting ofhypotension/ septic shock. Most likely ATN. GIOVANNY, ANCA, Complements and SPEP are normal / negative. No renal recoveryso far. Renal prognosis is guarded to poor. Suspect ESRD. Avoid nephrotoxic agents. Meds dosage based on GFR. Patient is on maintenance hemodialysis since 02/08/2019. HD today. Patient has outpatient hemodialysis chair at [facility]. 2. FEN: Volume depletion,treated with IV fluids. Anion-gap MA,2/2 PAULA. Monitor lytes. 3. Septic shock: BP is better. Not on pressors. On multiple Abx. 4.H/o Cardiac arrest. 5. Acute encephalopathy. 6.Hepatic Masses. 7.Anemia: POA. PRBC for Hb below 7. Epogen with HD. Subjective Date of service: 03/08/19 Interval history: Patient was seen and examined at the bedside. Objective - Vital Signs Vital signs: Vital Signs - 12hr 03/08/19 03/08/19 04:00 05:20 Pulse Rate 79 Respiratory 18 Rate - General Appearance General appearance: well-developed, well-nourished, appears stated age, other (no distress, R IJ tunnel catheter) EENT: ATNC, PERRL Neck: supple Respiratory: Present: Clear to Ascultation Cardiology: regular, S1S2, no murmurs Gastrointestinal: normoactive bowel sounds, no tenderness, no distended, obese Integumentary: no rash Neurologic: confused, disoriented, other (able to move extremities) Musculoskeletal: other (no edema, L AKA) - Lab 03/08/19 07:27 03/08/19 07:27 Most recent lab results Calcium 8.4 mg/dL (8.4-10.2) 03/08/19 07:27 Phosphorus 5.70 mg/dL (2.5-4.5) H 03/08/19 07:27 Medications & Allergies - Medications Allergies/Adverse Reactions: Allergies morphine Allergy (Uncoded 03/08/19 02:11) Swelling Home Medications: Home Medications Medication Instructions Recorded Confirmed Last Taken Type Aspirin 325 mg PO DAILY 08/08/13 03/08/19 Unknown History Gabapentin 300 mg PO TID 08/08/13 03/08/19 08/19/13 20:00 History Iron Ag/C/B12/Ca/Suc.acid/Stom 1 tab PO DAILY 08/08/13 03/08/19 08/19/13 19:00 History [Multigen Caplet] Loratadine [Claritin] 10 mg PO DAILY 08/08/13 03/08/19 08/19/13 11:00 History Sertraline [Zoloft] 50 mg PO DAILY 08/08/13 03/08/19 08/19/13 11:00 History Simvastatin 40 mg PO DAILY 08/08/13 03/08/19 08/19/13 11:00 History Topiramate [Topamax TAB] 50 mg PO HS 08/08/13 03/08/19 08/19/13 20:00 History carvediloL [Coreg] 25 mg PO BID 08/08/13 03/08/19 08/20/13 07:25 History hydrOXYzine HCL [Atarax] 25 mg PO TID 08/08/13 03/08/19 08/19/13 20:00 History levETIRAcetam [Keppra TAB] 500 mg PO BID 08/08/13 03/08/19 08/19/13 20:00 History Acetaminophen/Codeine [Tylenol #3] 1 tab PO Q6H PRN #20 tab 08/20/13 03/08/19 Unknown Rx Indomethacin [Indocin] 50 mg PO BID PRN 03/08/19 03/08/19 Unknown History Losartan/Hydrochlorothiazide 1 each PO QDAY 03/08/19 03/08/19 Unknown History [Losartan-Hctz 50-12.5 mg Tab] Montelukast [Singulair] 10 mg PO QPM 03/08/19 03/08/19 Unknown History Potassium Chloride [K-Dur] 10 meq PO BID 03/08/19 03/08/19 Unknown History Active Medications: Generic Name Dose Route Start Last Admin Trade Name Freq PRN Reason Stop Dose Admin Acetaminophen 650 mg 03/07/19 23:40 Tylenol PO Q4H PRN Pain MILD(1-3)/Fever >100.5/GRAY Aspirin 325 mg 03/08/19 10:00 03/08/19 10:15 Aspirin PO 325 mg DAILY [facility] Administration Carvedilol 25 mg 03/07/19 23:45 03/08/19 00:34 Coreg PO Not Given BID [facility] Epoetin Jordan 10,000 unit 03/08/19 09:14 Procrit SUB-Q TASHA PRN hemodialysis Gabapentin 300 mg 03/08/19 08:00 03/08/19 07:50 Gabapentin PO 300 mg TID [facility] Administration Heparin Sodium (Porcine) 5,000 unit 03/07/19 23:45 03/08/19 10:14 Heparin SUB-Q 5,000 unit Q12HR [facility] Administration Hydromorphone HCl 0.25 mg 03/07/19 23:42 Dilaudid IV Q3H PRN Pain, Moderate (4-6) Hydroxyzine HCl 25 mg 03/08/19 08:00 03/08/19 07:50 Atarax PO 25 mg TID [facility] Administration Cefepime HCl 1 gm in 100 mls @ 200 mls/hr 03/08/19 01:00 03/08/19 04:30 Cefepime/Ns 1 Gm/100 Ml IV 200 mls/hr Q24H [facility] Administration Protocol Sodium Chloride 100 mls @ 999 mls/hr 03/08/19 09:14 Nacl 0.9% IV TASHA PRN Hypotension Levetiracetam 500 mg 03/07/19 23:45 03/08/19 10:15 Keppra PO 500 mg BID [facility] Administration Loratadine 10 mg 03/08/19 10:00 03/08/19 10:15 Claritin PO 10 mg DAILY [facility] Administration Niacin 500 mg 03/08/19 10:00 03/08/19 10:15 Niaspan Er PO 500 mg DAILY [facility] Administration Ondansetron HCl 4 mg 03/07/19 23:40 Zofran IV Q8H PRN Nausea And Vomiting Oxycodone/Acetaminophen 1 tab 03/07/19 23:42 03/08/19 03:01 Percocet 5/325 PO 1 tab Q6H PRN Administration Pain, Moderate (4-6) Potassium Chloride 10 meq 03/08/19 10:00 03/08/19 10:15 K-Dur PO 10 meq QDAY [facility] Administration Pravastatin Sodium 80 mg 03/08/19 22:00 Pravachol PO QHS [facility] Sertraline HCl 25 mg 03/08/19 10:00 03/08/19 10:15 Zoloft PO 25 mg DAILY [facility] Administration Sodium Chloride 10 ml 03/08/19 10:00 12/06/19 09:31 Sodium Chloride Flush Syringe 10 Ml IV Not Given BID [facility] Sodium Chloride 10 ml 03/07/19 23:40 Sodium Chloride Flush Syringe 10 Ml IV PRN PRN LINE FLUSH Topiramate 50 mg 03/08/19 22:00 Topamax PO QHS [facility]
[2019-03-08] MEDS: PRAVASTATIN 80 MG TAB PO SCH (21:57)
[2019-03-08] MEDS: TOPIRAMATE TAB 25 MG TAB PO SCH (21:58)
[2019-03-08] MEDS ORDERED: TOPIRAMATE 50 MG PO SCH (22:00)
[2019-03-09] MEDS: CEFEPIME/NS 1 GM/100 ML 1 GM/100 ML BAG IV SCH (01:35)
[2019-03-09 06:25] LABS: Hematocrit 28.5 % (30.3-42.9); Hemoglobin 8.9 gm/dl (10.1-14.3); Mean Corpuscular HGB Conc 31 % (30-34); Mean Corpuscular Volume 86 fl (79-97); Platelet Count 117 K/mm3 (140-440); Red Blood Count 3.32 M/mm3 (3.65-5.03); Red Cell Distribution Width 17.2 % (13.2-15.2)
[2019-03-09 06:42] LABS: Calcium 8.1 mg/dL (8.4-10.2)
--- NOTE | 2019-03-09 09:46 | Progress Note ---
Assessment and Plan 1. Acute kidney injury: VasomotorAKI superimposed on CKD stage 4 in the setting ofhypotension/ septic shock. Most likely ATN. GIOVANNY, ANCA, Complements and SPEP are normal / negative. No renal recoveryso far. Renal prognosis is guarded to poor. Suspect ESRD. Avoid nephrotoxic agents. Meds dosage based on GFR. Patient is on maintenance hemodialysis since 02/08/2019. Hemodialysis: 03/08. Patient has outpatient hemodialysis chair at [facility]. 2. FEN: Volume depletion,treated with IV fluids. Anion-gap MA,2/2 PAULA. Monitor lytes. 3. Septic shock: BP is better. Not on pressors. On multiple Abx. 4.H/o Cardiac arrest. 5. Acute encephalopathy. 6.Hepatic Masses. 7.Anemia: POA. PRBC for Hb below 7. Epogen with HD. Examination: General appearance: well-developed, well-nourished, appears stated age, no distress HEENT: ATNC, PHILIPPE Neck: supple, trachea midline Respiratory: Clear to Ascultation Cardiology: regular, S1S2, no murmur Abdomen: soft, normoactive bowel sounds, not tender, obese Integumentary: no rash Neurologic: confused, disoriented, able to move extremities Ext: no edema, L AKA Hemodialysis access: R IJ tunnel catheter Subjective Date of service: 03/09/19 Interval history: Patient was seen and examined at the bedside. Grand daughter at the bedside. Objective - Vital Signs Vital signs: Vital Signs - 12hr 03/08/19 03/08/19 03/09/19 23:51 23:52 00:00 Temperature 97.6 F Pulse Rate 91 H 86 Respiratory 20 Rate Blood Pressure 97/68 O2 Sat by Pulse 100 Oximetry 03/09/19 03/09/19 03/09/19 04:45 04:46 08:55 Temperature 98.3 F 97.5 F L Pulse Rate 91 H Respiratory 20 18 Rate Blood Pressure 119/60 127/73 O2 Sat by Pulse 100 Oximetry - Lab 03/09/19 05:37 03/09/19 05:37 Most recent lab results Calcium 8.1 mg/dL (8.4-10.2) L 03/09/19 05:37 Phosphorus 5.70 mg/dL (2.5-4.5) H 03/08/19 07:27 Medications & Allergies - Medications Allergies/Adverse Reactions: Allergies morphine Allergy (Uncoded 03/08/19 02:11) Swelling Home Medications: Home Medications Medication Instructions Recorded Confirmed Last Taken Type Aspirin 325 mg PO DAILY 08/08/13 03/08/19 Unknown History Gabapentin 300 mg PO TID 08/08/13 03/08/19 08/19/13 20:00 History Iron Ag/C/B12/Ca/Suc.acid/Stom 1 tab PO DAILY 08/08/13 03/08/19 08/19/13 19:00 History [Multigen Caplet] Loratadine [Claritin] 10 mg PO DAILY 08/08/13 03/08/19 08/19/13 11:00 History Sertraline [Zoloft] 50 mg PO DAILY 08/08/13 03/08/19 08/19/13 11:00 History Simvastatin 40 mg PO DAILY 08/08/13 03/08/19 08/19/13 11:00 History Topiramate [Topamax TAB] 50 mg PO HS 08/08/13 03/08/19 08/19/13 20:00 History carvediloL [Coreg] 25 mg PO BID 08/08/13 03/08/19 08/20/13 07:25 History hydrOXYzine HCL [Atarax] 25 mg PO TID 08/08/13 03/08/19 08/19/13 20:00 History levETIRAcetam [Keppra TAB] 500 mg PO BID 08/08/13 03/08/19 08/19/13 20:00 History Acetaminophen/Codeine [Tylenol #3] 1 tab PO Q6H PRN #20 tab 08/20/13 03/08/19 Unknown Rx Indomethacin [Indocin] 50 mg PO BID PRN 03/08/19 03/08/19 Unknown History Losartan/Hydrochlorothiazide 1 each PO QDAY 03/08/19 03/08/19 Unknown History [Losartan-Hctz 50-12.5 mg Tab] Montelukast [Singulair] 10 mg PO QPM 03/08/19 03/08/19 Unknown History Potassium Chloride [K-Dur] 10 meq PO BID 03/08/19 03/08/19 Unknown History Active Medications: Generic Name Dose Route Start Last Admin Trade Name Freq PRN Reason Stop Dose Admin Acetaminophen 650 mg 12/05/19 23:40 Tylenol PO Q4H PRN Pain MILD(1-3)/Fever >100.5/GRAY Aspirin 325 mg 03/08/19 10:00 03/08/19 10:15 Aspirin PO 325 mg DAILY [facility] Administration Carvedilol 25 mg 03/07/19 23:45 03/08/19 21:58 Coreg PO Not Given BID [facility] Epoetin Jordan 10,000 unit 03/08/19 09:14 Procrit SUB-Q TASHA PRN hemodialysis Heparin Sodium (Porcine) 5,000 unit 03/07/19 23:45 03/08/19 21:58 Heparin SUB-Q 5,000 unit Q12HR [facility] Administration Hydromorphone HCl 0.25 mg 03/07/19 23:42 Dilaudid IV Q3H PRN Pain, Moderate (4-6) Hydroxyzine HCl 25 mg 03/08/19 08:00 03/08/19 21:58 Atarax PO 25 mg TID [facility] Administration Cefepime HCl 1 gm in 100 mls @ 200 mls/hr 03/08/19 01:00 03/09/19 01:35 Cefepime/Ns 1 Gm/100 Ml IV 200 mls/hr Q24H [facility] Administration Protocol Sodium Chloride 100 mls @ 999 mls/hr 03/08/19 09:14 Nacl 0.9% IV TASAH PRN Hypotension Levetiracetam 500 mg 03/07/19 23:45 03/08/19 21:58 Keppra PO 500 mg BID [facility] Administration Loratadine 10 mg 03/08/19 10:00 03/08/19 10:15 Claritin PO 10 mg DAILY [facility] Administration Niacin 500 mg 03/08/19 10:00 03/08/19 10:15 Niaspan Er PO 500 mg DAILY [facility] Administration Ondansetron HCl 4 mg 03/07/19 23:40 Zofran IV Q8H PRN Nausea And Vomiting Oxycodone/Acetaminophen 1 tab 03/07/19 23:42 03/08/19 03:01 Percocet 5/325 PO 1 tab Q6H PRN Administration Pain, Moderate (4-6) Potassium Chloride 10 meq 03/08/19 10:00 03/08/19 10:15 K-Dur PO 10 meq QDAY [facility] Administration Pravastatin Sodium 80 mg 03/08/19 22:00 03/08/19 21:57 Pravachol PO 80 mg QHS [facility] Administration Sertraline HCl 25 mg 03/08/19 10:00 03/08/19 10:15 Zoloft PO 25 mg DAILY [facility] Administration Sodium Chloride 10 ml 03/08/19 10:00 03/08/19 21:59 Sodium Chloride Flush Syringe 10 Ml IV 10 ml BID [facility] Administration Sodium Chloride 10 ml 03/07/19 23:40 Sodium Chloride Flush Syringe 10 Ml IV PRN PRN LINE FLUSH Topiramate 50 mg 03/08/19 22:00 03/08/19 21:58 Topamax PO 50 mg QHS [facility] Administration
[2019-03-09] MEDS: POTASSIUM CHLORIDE ER 10 MEQ TAB PO SCH (09:54)
[2019-03-09] MEDS: oxyCODONE /ACETAMINOPHEN 5-325MG TAB PO PRN (09:54)
[2019-03-09] MEDS: NIACIN ER 500 MG TAB PO SCH (09:55)
[2019-03-09] MEDS: levETIRAcetam 500 MG TAB PO SCH ×2 (09:55→21:33)
[2019-03-09] MEDS: hydrOXYzine HCL 25 MG TAB PO SCH ×3 (09:55→21:32)
[2019-03-09] MEDS: carvediloL 25 MG TAB PO SCH ×2 (09:55→21:33)
[2019-03-09] MEDS: ASPIRIN 325 MG TAB PO SCH (09:55)
[2019-03-09] MEDS: SERTRALINE 25 MG TAB PO SCH (09:55)
[2019-03-09] MEDS: LORATADINE (NF) 10 MG TAB PO SCH (09:55)
[2019-03-09] MEDS: HEPARIN 5,000 UNIT/1 ML VIAL SUB-Q SCH (09:56)
--- NOTE | 2019-03-09 13:27 | Progress Note ---
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 In emergency room, her systolic blood pressure was 68/29. Patient was at [facility] and suffered 2 cardiac arrest per daughter Lety at bedside. She went to [facility] but was only there for 2-3 days prior to coming here. The Hemodialysis center sent her here instead of [facility]. She has a huge left forearm ulcer with large scab. Patient is confused. * Chest x-ray: report reviewed (no acute findings) * CT abdomen IMPRESSION: 1. Low density liver lesions suspicious for metastases. No definite primary tumor is seen. 2. Extensive postoperative changes in the pelvis but no inflammatory process or hemorrhage identified. 3. Multiple incidental findings as described. * CT head IMPRESSION: 1. No focal mass, hemorrhage, hydrocephalus, or acute, large territorial infarct. Follow-up with diffusion imaging by MRI, as clinically warranted. Hypotension: resolved with gentle IVF treatment ESRD on HD: Nephrology is following Acute hypoxic respiratory failure: continue to try to wean the 3.5 liters of nasal cannula O2 Acute Metabolic encephalopathy SIRS with organ dysfunction, no sepsis source of infection found so far: on empiric abx, follow cultures Seizure disorder Continue to Keppra DVT prophylaxis: Continue heparin Abnormal CT abd/pelvis with liver mass: consult GI Disposition: continue inpatient care, await re-placement History Interval history: Patient was seen and examined. Follow-up on current diagnosis of hypotension. No overnight events reported to me. Imaging, nursing note, chart, labs and old chart reviewed. Hospitalist Physical - Physical exam Narrative exam: Gen: chronic ill appearing, NAD, Awake, Alert, Orientated x 1 HEENT: NCAT, EOMI, PERRL, OP Clear Neck: supple, no adenopathy, no thyromegaly, no JVD CVS/Heart: RRR, normal S1S2, pulses present bilaterally Chest/Lungs: diminished bs bilateral, Symmetrical chest expansion, good air entry bilaterally GI/Abdomen: soft, NTND, good bowel sounds, no guarding or rebound /Bladder: no suprapubic tenderness, no CVA or paraspinal tenderness Extermity/Skin: multiple skin breakdowns, left forearm, sacrum MSK: FROM x 3, total left leg amputation Neuro: CN 2-12 grossly intact, doesn't follow all commands Psych: calm but confused - Constitutional Vitals: Temp Pulse Resp BP Pulse Ox 97.5 F L 88 18 127/73 100 03/09/19 08:55 03/09/19 10:00 03/09/19 08:55 03/09/19 09:55 03/09/19 04:45 General appearance: Present: no acute distress, well-nourished Results - Labs CBC & Chem 7: 03/09/19 05:37 03/09/19 05:37 Labs: Laboratory Last Values WBC 11.6 K/mm3 (4.5-11.0) H 03/09/19 05:37 RBC 3.32 M/mm3 (3.65-5.03) L 03/09/19 05:37 Hgb 8.9 gm/dl (10.1-14.3) L 03/09/19 05:37 Hct 28.5 % (30.3-42.9) L 03/09/19 05:37 MCV 86 fl (79-97) 03/09/19 05:37 MCH 27 pg (28-32) L 03/09/19 05:37 MCHC 31 % (30-34) 03/09/19 05:37 RDW 17.2 % (13.2-15.2) H 03/09/19 05:37 Plt Count 117 K/mm3 (140-440) L 03/09/19 05:37 Add Manual Diff Complete 03/08/19 07:27 Total Counted 100 03/08/19 07:27 Seg Neuts % (Manual) 86.0 % (40.0-70.0) H 03/08/19 07:27 Band Neutrophils % 1.0 % 03/08/19 07:27 Lymphocytes % (Manual) 7.0 % (13.4-35.0) L 03/08/19 07:27 Reactive Lymphs % (Man) 0 % 03/08/19 07:27 Monocytes % (Manual) 3.0 % (0.0-7.3) 03/08/19 07:27 Eosinophils % (Manual) 2.0 % (0.0-4.3) 03/08/19 07:27 Basophils % (Manual) 0 % (0.0-1.8) 03/08/19 07:27 Metamyelocytes % 1.0 % 03/08/19 07:27 Myelocytes % 0 % 03/08/19 07:27 Promyelocytes % 0 % 03/08/19 07:27 Blast Cells % 0 % 03/08/19 07:27 Nucleated RBC % Not Reportable 03/08/19 07:27 Seg Neutrophils # Man 13.8 K/mm3 (1.8-7.7) H 03/08/19 07:27 Band Neutrophils # 0.2 K/mm3 03/08/19 07:27 Lymphocytes # (Manual) 1.1 K/mm3 (1.2-5.4) L 03/08/19 07:27 Abs React Lymphs (Man) 0.0 K/mm3 03/08/19 07:27 Monocytes # (Manual) 0.5 K/mm3 (0.0-0.8) 03/08/19 07:27 Eosinophils # (Manual) 0.3 K/mm3 (0.0-0.4) 03/08/19 07:27 Basophils # (Manual) 0.0 K/mm3 (0.0-0.1) 03/08/19 07:27 Metamyelocytes # 0.2 K/mm3 03/08/19 07:27 Myelocytes # 0.0 K/mm3 03/08/19 07:27 Promyelocytes # 0.0 K/mm3 03/08/19 07:27 Blast Cells # 0.0 K/mm3 03/08/19 07:27 WBC Morphology Not Reportable 03/08/19 07:27 Hypersegmented Neuts Not Reportable 03/08/19 07:27 Hyposegmented Neuts Not Reportable 03/08/19 07:27 Hypogranular Neuts Not Reportable 03/08/19 07:27 Smudge Cells Not Reportable 03/08/19 07:27 Toxic Granulation Not Reportable 03/08/19 07:27 Toxic Vacuolation Not Reportable 03/08/19 07:27 Dohle Bodies Not Reportable 03/08/19 07:27 Pelger-Huet Anomaly Not Reportable 03/08/19 07:27 Dany Rods Not Reportable 03/08/19 07:27 Platelet Estimate Consistent w auto 03/08/19 07:27 Clumped Platelets Not Reportable 03/08/19 07:27 Plt Clumps, EDTA Not Reportable 03/08/19 07:27 Large Platelets Few 03/08/19 07:27 Giant Platelets Not Reportable 03/08/19 07:27 Platelet Satelliting Not Reportable 03/08/19 07:27 Plt Morphology Comment Not Reportable 03/08/19 07:27 RBC Morphology Not Reportable 03/08/19 07:27 Dimorphic RBCs Not Reportable 03/08/19 07:27 Polychromasia Few 03/08/19 07:27 Hypochromasia Not Reportable 03/08/19 07:27 Poikilocytosis Not Reportable 03/08/19 07:27 Anisocytosis Not Reportable 03/08/19 07:27 Microcytosis Few 03/08/19 07:27 Macrocytosis Few 03/08/19 07:27 Spherocytes Not Reportable 03/08/19 07:27 Pappenheimer Bodies Not Reportable 03/08/19 07:27 Sickle Cells Not Reportable 03/08/19 07:27 Target Cells Not Reportable 03/08/19 07:27 Tear Drop Cells Not Reportable 03/08/19 07:27 Ovalocytes Not Reportable 03/08/19 07:27 Helmet Cells Not Reportable 03/08/19 07:27 [place] Bodies Not Reportable 03/08/19 07:27 [place] Rings Not Reportable 03/08/19 07:27 [place] Cells Not Reportable 03/08/19 07:27 Bite Cells Not Reportable 03/08/19 07:27 Crenated Cell Not Reportable 03/08/19 07:27 Elliptocytes Not Reportable 03/08/19 07:27 Acanthocytes (Spur) Not Reportable 03/08/19 07:27 Rouleaux Not Reportable 03/08/19 07:27 Hemoglobin C Crystals Not Reportable 03/08/19 07:27 Schistocytes Not Reportable 03/08/19 07:27 Malaria parasites Not Reportable 03/08/19 07:27 Markos Bodies Not Reportable 03/08/19 07:27 Hem Pathologist Commnt No 03/08/19 07:27 PT 16.1 Sec. (12.2-14.9) H 03/07/19 15:07 INR 1.31 (0.87-1.13) H 03/07/19 15:07 VBG pH 7.365 (7.320-7.420) 03/07/19 15:07 Sodium 139 mmol/L (137-145) 03/09/19 05:37 Potassium 4.8 mmol/L (3.6-5.0) 03/09/19 05:37 Chloride 100.5 mmol/L (98-107) 03/09/19 05:37 Carbon Dioxide 22 mmol/L (22-30) 03/09/19 05:37 Anion Gap 21 mmol/L 03/09/19 05:37 BUN 23 mg/dL (7-17) H 03/09/19 05:37 Creatinine 2.6 mg/dL (0.7-1.2) H 03/09/19 05:37 Estimated GFR 21 ml/min 03/09/19 05:37 BUN/Creatinine Ratio 9 % 03/09/19 05:37 Glucose 78 mg/dL (65-100) 03/09/19 05:37 POC Glucose 126 (70-105) H 03/09/19 10:01 Hemoglobin A1c 5.7 % (4-6) 03/08/19 00:03 Lactic Acid 1.10 mmol/L (0.7-2.0) 03/07/19 18:06 Calcium 8.1 mg/dL (8.4-10.2) L 03/09/19 05:37 Phosphorus 5.70 mg/dL (2.5-4.5) H 03/08/19 07:27 Total Bilirubin 0.50 mg/dL (0.1-1.2) 03/07/19 15:07 AST 20 units/L (5-40) 03/07/19 15:07 ALT 19 units/L (7-56) 03/07/19 15:07 Alkaline Phosphatase 131 units/L (35-129) H 03/07/19 15:07 Troponin T 0.031 ng/mL (0.00-0.029) H 03/07/19 20:52 Total Protein 8.6 g/dL (6.3-8.2) H 03/07/19 15:07 Albumin 2.9 g/dL (3.9-5) L 03/07/19 15:07 Albumin/Globulin Ratio 0.5 % 03/07/19 15:07 Triglycerides 122 mg/dL (2-149) 03/07/19 15:14 Cholesterol 78 mg/dL (50-199) 03/07/19 15:14 LDL Cholesterol Direct 19 mg/dL (50-130) L 03/07/19 15:14 HDL Cholesterol 37 mg/dL (40-59) L 03/07/19 15:14 Cholesterol/HDL Ratio 2.10 % 03/07/19 15:14 Random Vancomycin 14.9 ug/mL (0-40.0) 03/09/19 05:37 Hepatitis A IgM Ab Non-reactive (NonReactive) 03/08/19 10:24 Hep Bs Antigen Non-reactive (Negative) 03/08/19 10:24 Hep B Core IgM Ab Non-reactive (NonReactive) 03/08/19 10:24 Hepatitis C Antibody Non-reactive (NonReactive) 03/08/19 10:24 Active Medications - Current Medications Current Medications: Generic Name Dose Route Start Last Admin Trade Name Freq PRN Reason Stop Dose Admin Acetaminophen 650 mg 03/07/19 23:40 Tylenol PO Q4H PRN Pain MILD(1-3)/Fever >100.5/GRAY Aspirin 325 mg 03/08/19 10:00 03/09/19 09:55 Aspirin PO 325 mg DAILY BRIDGET Administration Carvedilol 25 mg 03/07/19 23:45 03/09/19 09:55 Coreg PO 25 mg BID BRIDGET Administration Epoetin Jordan 10,000 unit 03/08/19 09:14 Procrit SUB-Q TASHA PRN hemodialysis Hydromorphone HCl 0.25 mg 03/07/19 23:42 Dilaudid IV Q3H PRN Pain, Moderate (4-6) Hydroxyzine HCl 25 mg 03/08/19 08:00 03/09/19 09:55 Atarax PO 25 mg TID BRIDGET Administration Cefepime HCl 1 gm in 100 mls @ 200 mls/hr 03/08/19 01:00 03/09/19 09:54 Cefepime/Ns 1 Gm/100 Ml IV Infused Q24H [facility] Infusion Protocol Sodium Chloride 100 mls @ 999 mls/hr 03/08/19 09:14 Nacl 0.9% IV TASHA PRN Hypotension Levetiracetam 500 mg 03/07/19 23:45 03/09/19 09:55 Keppra PO 500 mg BID BRIDGET Administration Loratadine 10 mg 03/08/19 10:00 03/09/19 09:55 Claritin PO 10 mg DAILY BRIDGET Administration Niacin 500 mg 03/08/19 10:00 03/09/19 09:55 Niaspan Er PO 500 mg DAILY BRIDGET Administration Ondansetron HCl 4 mg 03/07/19 23:40 Zofran IV Q8H PRN Nausea And Vomiting Oxycodone/Acetaminophen 1 tab 03/07/19 23:42 03/09/19 09:54 Percocet 5/325 PO 1 tab Q6H PRN Administration Pain, Moderate (4-6) Potassium Chloride 10 meq 03/08/19 10:00 03/09/19 09:54 K-Dur PO 10 meq QDAY BRIDGET Administration Pravastatin Sodium 80 mg 03/08/19 22:00 03/08/19 21:57 Pravachol PO 80 mg QHS BRIDGET Administration Sertraline HCl 25 mg 03/08/19 10:00 03/09/19 09:55 Zoloft PO 25 mg DAILY BRIDGET Administration Sodium Chloride 10 ml 03/08/19 10:00 03/09/19 09:56 Sodium Chloride Flush Syringe 10 Ml IV 10 ml BID BRIDGET Administration Sodium Chloride 10 ml 03/07/19 23:40 Sodium Chloride Flush Syringe 10 Ml IV PRN PRN LINE FLUSH Topiramate 50 mg 03/08/19 22:00 03/08/19 21:58 Topamax PO 50 mg QHS BRIDGET Administration Nutrition/Malnutrition Assess - Dietary Evaluation Nutrition/Malnutrition Findings: Nutrition Notes Start: 03/08/19 12:58 Freq: Status: Active Protocol: Document 03/08/19 12:58 KS (Rec: 03/08/19 13:12 [facility]-[id number]) Co-Sign 03/08/19 12:58 LP Nutrition Notes Need for Assessment generated from: calibration engineer Initial or Follow up Assessment Current Diagnosis CKD (stage V CKD),Diabetes, Hypertension Other Pertinent Diagnosis on HD, craniotomy for brain tumor, seizures, cardiac stent , pacemaker Current Diet Renal Diet Labs/Tests CO2 20 BUN 45 CR 4.9 Glu 110 Pertinent Medications Reviewed Height 5 ft 5 in Weight 98.2 kg [place] Body Weight (kg) 56.81 BMI 36.0 Intake Prior to Admission Good Weight Status Obese Subjective/Other Information RN screen for difficulty chewing. Pt unsure if she has lost or gained any wt recently . Pt consumed 25% of breakfast tray this morning. States appetite has been decreased for "a few days." Pt states she is in pain from being consipated, requests laxative. Pt denies difficulty chewing or swallowing. Pt open to trying Nepro ONS. Burn Absent Trauma Absent GI Symptoms Constipation Current % PO Poor (25-49%) Minimum of two criteria No physical signs of malnutrition #1 Nutrition Diagnosis Inadequate oral intake Etiology decreased appetite, constipation As Evidenced by Signs and Symptoms pt consuming 25% of meals Is patient on ventilator? No Is Patient Ambulatory and/or Out of Bed Yes REE-([facility]-ambulatory/OOB) [ [id number] [id number]] Calculation Used for Recommendations [facility] Additional Notes PRO: >118g/day (>1.2g/kg/day) Fluid: 1000-1500mL/day or per MD Nutrition Intervention Change Diet Order: Continue current diet Add Supplement/Snack (indicate name/kcal Nepro BID /protein ) Provides kCal: 850 Provides Protein (gm) 38 Goal #1 Meet at least 75% of energy and PRO needs via PO and ONS intakes Anticipated Discharge Needs: Renal diet Follow-Up By: 03/12/19 Additional Comments Follow for PO and ONS intakes
--- NOTE | 2019-03-09 13:49 | Event Note ---
Date: 03/09/[address] scan. There are suspicious low attenuating lesions in the liver but these require further imaging. Given ESRD, recommend three phase liver CT (CT abdomen and pelvis with and without contrast, with reason liver lesions, need liver mass protocol). This will need to be coordinated with nephrology. If there are still concerning lesions, then can order CT biopsy liver and coordinate this with diagnostic radiology as diagnostic radiology performs CT guided biopsies. If anything changes, IR can be reconsulted.
--- NOTE | 2019-03-09 14:39 | Gastroenterology Consultation ---
History of Present Illness - Reason for Consult Consult date: 03/09/19 liver lesions Requesting physician: LEI JOINER - History of Present Illness This is a 78 yo female with pmh of ESRD on HD, HTN, h/o brain tumor (20 years ago), h/o bone cancer (s/p amputation of leg 40 years ago), and recent admission at [facility] for sepsis/bacteremia s/p cardiac arrest and discharged to rehab. Patient was at HD prior to this admission and noted to be hypotension and brought to the hospital. GI consulted for liver lesions which appeared to be possible mets on CT a/p without contrast. Patient's family reports that these were found during her last admission at [facility]. No follow up with oncology or GI. Patient noted to be constipated and reported having abdominal cramping. No blood in the stool. Patient received pain medication for leg pain and is drowsy, not able to give much history Medication list reviewed. Past History Past Medical History: diabetes, dialysis, ESRD, hypertension, other (See HPI.) Medications and Allergies Allergies Allergy/AdvReac Type Severity Reaction Status Date / Time morphine Allergy Swelling Uncoded 03/08/19 02:11 Home Medications Medication Instructions Recorded Confirmed Last Taken Type Aspirin 325 mg PO DAILY 08/08/13 03/08/19 Unknown History Gabapentin 300 mg PO TID 08/08/13 03/08/19 08/19/13 20:00 History Iron Ag/C/B12/Ca/Suc.acid/Stom 1 tab PO DAILY 08/08/13 03/08/19 08/19/13 19:00 History [Multigen Caplet] Loratadine [Claritin] 10 mg PO DAILY 08/08/13 03/08/19 08/19/13 11:00 History Sertraline [Zoloft] 50 mg PO DAILY 08/08/13 03/08/19 08/19/13 11:00 History Simvastatin 40 mg PO DAILY 08/08/13 03/08/19 08/19/13 11:00 History Topiramate [Topamax TAB] 50 mg PO HS 08/08/13 03/08/19 08/19/13 20:00 History carvediloL [Coreg] 25 mg PO BID 08/08/13 03/08/19 08/20/13 07:25 History hydrOXYzine HCL [Atarax] 25 mg PO TID 08/08/13 03/08/19 08/19/13 20:00 History levETIRAcetam [Keppra TAB] 500 mg PO BID 08/08/13 03/08/19 08/19/13 20:00 History Acetaminophen/Codeine [Tylenol #3] 1 tab PO Q6H PRN #20 tab 08/20/13 03/08/19 Unknown Rx Indomethacin [Indocin] 50 mg PO BID PRN 03/08/19 03/08/19 Unknown History Losartan/Hydrochlorothiazide 1 each PO QDAY 03/08/19 03/08/19 Unknown History [Losartan-Hctz 50-12.5 mg Tab] Montelukast [Singulair] 10 mg PO QPM 03/08/19 03/08/19 Unknown History Potassium Chloride [K-Dur] 10 meq PO BID 03/08/19 03/08/19 Unknown History Active Meds: Active Medications Acetaminophen (Tylenol) 650 mg PO Q4H PRN PRN Reason: Pain MILD(1-3)/Fever >100.5/GRAY Aspirin (Aspirin) 325 mg PO DAILY [facility] Last Admin: 03/09/19 09:55 Dose: 325 mg Documented by: Carvedilol (Coreg) 25 mg PO BID [facility] Last Admin: 03/09/19 09:55 Dose: 25 mg Documented by: Epoetin Jordan (Procrit) 10,000 unit SUB-Q TASHA PRN PRN Reason: hemodialysis Hydromorphone HCl (Dilaudid) 0.25 mg IV Q3H PRN PRN Reason: Pain, Moderate (4-6) Hydroxyzine HCl (Atarax) 25 mg PO TID [facility] Last Admin: 03/09/19 09:55 Dose: 25 mg Documented by: Cefepime HCl (Cefepime/Ns 1 Gm/100 Ml) 1 gm in 100 mls @ 200 mls/hr IV Q24H [facility]; Protocol Last Infusion: 03/09/19 09:54 Dose: Infused Documented by: Sodium Chloride (Nacl 0.9%) 100 mls @ 999 mls/hr IV TASHA PRN PRN Reason: Hypotension Levetiracetam (Keppra) 500 mg PO BID [facility] Last Admin: 03/09/19 09:55 Dose: 500 mg Documented by: Loratadine (Claritin) 10 mg PO DAILY [facility] Last Admin: 03/09/19 09:55 Dose: 10 mg Documented by: Niacin (Niaspan Er) 500 mg PO DAILY [facility] Last Admin: 03/09/19 09:55 Dose: 500 mg Documented by: Ondansetron HCl (Zofran) 4 mg IV Q8H PRN PRN Reason: Nausea And Vomiting Oxycodone/Acetaminophen (Percocet 5/325) 1 tab PO Q6H PRN PRN Reason: Pain, Moderate (4-6) Last Admin: 03/09/19 09:54 Dose: 1 tab Documented by: Potassium Chloride (K-Dur) 10 meq PO QDAY [facility] Last Admin: 03/09/19 09:54 Dose: 10 meq Documented by: Pravastatin Sodium (Pravachol) 80 mg PO QHS [facility] Last Admin: 03/08/19 21:57 Dose: 80 mg Documented by: Sertraline HCl (Zoloft) 25 mg PO DAILY [facility] Last Admin: 03/09/19 09:55 Dose: 25 mg Documented by: Sodium Chloride (Sodium Chloride Flush Syringe 10 Ml) 10 ml IV BID [facility] Last Admin: 03/09/19 09:56 Dose: 10 ml Documented by: Sodium Chloride (Sodium Chloride Flush Syringe 10 Ml) 10 ml IV PRN PRN PRN Reason: LINE FLUSH Topiramate (Topamax) 50 mg PO QHS [facility] Last Admin: 03/08/19 21:58 Dose: 50 mg Documented by: Review of Systems - Review of Systems ROS unobtainable: due to mental status Exam - Constitutional Vital Signs: Temp Pulse Resp BP Pulse Ox 97.5 F L 88 18 127/73 100 03/09/19 08:55 03/09/19 10:00 03/09/19 08:55 03/09/19 09:55 03/09/19 04:45 General appearance: no acute distress - Neck Neck: supple - Respiratory Respiratory effort: normal - Cardiovascular Rhythm: regular Heart Sounds: Present: S1 & S2 - Gastrointestinal General gastrointestinal: Present: soft, non-tender, non-distended, normal bowel sounds - Integumentary Integumentary: Present: warm - Labs CBC & Chem 7: 03/09/19 05:37 03/09/19 05:37 Lab Results: Laboratory Results - last 24 hr 12/10/1903/09/19 03/09/19 05:37 05:37 05:37 WBC 11.6 H RBC 3.32 L Hgb 8.9 L Hct 28.5 L MCV 86 MCH 27 L MCHC 31 RDW 17.2 H Plt Count 117 L Sodium 139 Potassium 4.8 Chloride 100.5 Carbon Dioxide 22 Anion Gap 21 BUN 23 H Creatinine 2.6 H Estimated GFR 21 BUN/Creatinine Ratio 9 Glucose 78 POC Glucose Calcium 8.1 L Random Vancomycin 14.9 03/09/19 10:01 WBC RBC Hgb Hct MCV MCH MCHC RDW Plt Count Sodium Potassium Chloride Carbon Dioxide Anion Gap BUN Creatinine Estimated GFR BUN/Creatinine Ratio Glucose POC Glucose 126 H Calcium Random Vancomycin - Imaging CT Scan: report reviewed Assessment and Plan # Liver lesions - low density ill-defined hepatic lesions, concerning for mets. No primary tumor noted. This is on CT a/p without contrast. - no known liver disease per family but imaging concerning for possible cirrhosis. - normal liver enzymes. - INR elevated at 1.3 - acute viral hep panel negative. Recommend - evaluation with further imaging including CT liver protocol if can be arranged with nephrology. - recommend CT guided liver biopsy. - will follow.
[2019-03-09] MEDS: TOPIRAMATE TAB 25 MG TAB PO SCH (21:32)
[2019-03-09] MEDS: PRAVASTATIN 80 MG TAB PO SCH (21:32)
[2019-03-10] MEDS: CEFEPIME/NS 1 GM/100 ML 1 GM/100 ML BAG IV SCH (00:51)
[2019-03-10] MEDS: ONDANSETRON 4 MG/2 ML INJ IV PRN ×2 (03:08→10:53)
[2019-03-10] MEDS: NIACIN ER 500 MG TAB PO SCH (10:14)
[2019-03-10] MEDS: SERTRALINE 25 MG TAB PO SCH (10:15)
[2019-03-10] MEDS: carvediloL 25 MG TAB PO SCH ×2 (10:15→21:30)
[2019-03-10] MEDS: ASPIRIN 325 MG TAB PO SCH (10:15)
[2019-03-10] MEDS: levETIRAcetam 500 MG TAB PO SCH ×2 (10:16→21:30)
[2019-03-10] MEDS: LORATADINE (NF) 10 MG TAB PO SCH (10:16)
[2019-03-10] MEDS: POTASSIUM CHLORIDE ER 10 MEQ TAB PO SCH (10:16)
[2019-03-10] MEDS: hydrOXYzine HCL 25 MG TAB PO SCH ×3 (10:20→21:30)
[2019-03-10] MEDS ORDERED: FLEET ENEMA PR ONE (11:00)
[2019-03-10] MEDS: POLYETHYLENE GLYCOL 3350 17 GM POWDER PO SCH (14:34)
[2019-03-10] MEDS: oxyCODONE /ACETAMINOPHEN 5-325MG TAB PO PRN (15:23)
--- NOTE | 2019-03-10 16:02 | Progress Note ---
Assessment and Plan 1. Acute kidney injury: VasomotorAKI superimposed on CKD stage 4 in the setting ofhypotension/ septic shock. Most likely ATN. GIOVANNY, ANCA, Complements and SPEP are normal / negative. No renal recoveryso far. Renal prognosis is guarded to poor. Suspect ESRD. Avoid nephrotoxic agents. Meds dosage based on GFR. Patient is on maintenance hemodialysis since 02/08/2019. Hemodialysis: 03/08. Patient has outpatient hemodialysis chair at [facility]. 2. FEN: Volume depletion,treated with IV fluids. Anion-gap MA,2/2 PAULA. Monitor lytes. 3. Septic shock: BP is better. Not on pressors. On multiple Abx. 4.H/o Cardiac arrest. 5. Acute encephalopathy. 6.Hepatic Masses. 7.Anemia: POA. PRBC for Hb below 7. Epogen with HD. Subjective Date of service: 03/10/19 Interval history: The patient was not examined today. However the current and previous medical records are reviewed in detail as are laboratory and imaging data reviewed when appropriate. Medications being given are also reviewed. In addition the case has been discussed with the attending hospitalist when needed.Newrenalrecommendations as above. Objective - Vital Signs Vital signs: Vital Signs - 12hr 03/10/19 03/10/19 03/10/19 04:14 05:31 05:34 Temperature 98.2 F Pulse Rate 83 Respiratory 18 18 Rate Blood Pressure 104/48 O2 Sat by Pulse 98 Oximetry 03/10/19 10:15 Temperature Pulse Rate 87 Respiratory Rate Blood Pressure O2 Sat by Pulse Oximetry - Lab 03/09/19 05:37 03/09/19 05:37 Most recent lab results Calcium 8.1 mg/dL (8.4-10.2) L 03/09/19 05:37 Phosphorus 5.70 mg/dL (2.5-4.5) H 03/08/19 07:27 Medications & Allergies - Medications Allergies/Adverse Reactions: Allergies morphine Allergy (Uncoded 03/08/19 02:11) Swelling Home Medications: Home Medications Medication Instructions Recorded Confirmed Last Taken Type Aspirin 325 mg PO DAILY 08/08/13 03/08/19 Unknown History Gabapentin 300 mg PO TID 08/08/13 03/08/19 08/19/13 20:00 History Iron Ag/C/B12/Ca/Suc.acid/Stom 1 tab PO DAILY 08/08/13 03/08/19 08/19/13 19:00 History [Multigen Caplet] Loratadine [Claritin] 10 mg PO DAILY 08/08/13 03/08/19 08/19/13 11:00 History Sertraline [Zoloft] 50 mg PO DAILY 08/08/13 03/08/19 08/19/13 11:00 History Simvastatin 40 mg PO DAILY 08/08/13 03/08/19 08/19/13 11:00 History Topiramate [Topamax TAB] 50 mg PO HS 08/08/13 03/08/19 08/19/13 20:00 History carvediloL [Coreg] 25 mg PO BID 08/08/13 03/08/19 08/20/13 07:25 History hydrOXYzine HCL [Atarax] 25 mg PO TID 08/08/13 03/08/19 08/19/13 20:00 History levETIRAcetam [Keppra TAB] 500 mg PO BID 08/08/13 03/08/19 08/19/13 20:00 History Acetaminophen/Codeine [Tylenol #3] 1 tab PO Q6H PRN #20 tab 08/20/13 03/08/19 Unknown Rx Indomethacin [Indocin] 50 mg PO BID PRN 03/08/19 03/08/19 Unknown History Losartan/Hydrochlorothiazide 1 each PO QDAY 03/08/19 03/08/19 Unknown History [Losartan-Hctz 50-12.5 mg Tab] Montelukast [Singulair] 10 mg PO QPM 03/08/19 03/08/19 Unknown History Potassium Chloride [K-Dur] 10 meq PO BID 03/08/19 03/08/19 Unknown History Active Medications: Generic Name Dose Route Start Last Admin Trade Name Freq PRN Reason Stop Dose Admin Acetaminophen 650 mg 03/07/19 23:40 03/10/19 03:14 Tylenol PO 650 mg Q4H PRN Administration Pain MILD(1-3)/Fever >100.5/GRAY Aspirin 325 mg 03/08/19 10:00 03/10/19 10:15 Aspirin PO 325 mg DAILY BRIDGET Administration Bisacodyl 10 mg 03/10/19 10:52 Dulcolax PO QDAY PRN Constipation Carvedilol 25 mg 03/07/19 23:45 03/10/19 10:15 Coreg PO 25 mg BID BRIDGET Administration Epoetin Jordan 10,000 unit 03/08/19 09:14 Procrit SUB-Q TASHA PRN hemodialysis Hydromorphone HCl 0.25 mg 03/07/19 23:42 Dilaudid IV Q3H PRN Pain, Moderate (4-6) Hydroxyzine HCl 25 mg 03/08/19 08:00 03/10/19 14:34 Atarax PO 25 mg TID BRIDGET Administration Cefepime HCl 1 gm in 100 mls @ 200 mls/hr 03/08/19 01:00 03/10/19 00:51 Cefepime/Ns 1 Gm/100 Ml IV 200 mls/hr Q24H BRIDGET Administration Protocol Sodium Chloride 100 mls @ 999 mls/hr 03/08/19 09:14 Nacl 0.9% IV TASHA PRN Hypotension Levetiracetam 500 mg 03/07/19 23:45 03/10/19 10:16 Keppra PO 500 mg BID BRIDGET Administration Loratadine 10 mg 03/08/19 10:00 03/10/19 10:16 Claritin PO 10 mg DAILY BRIDGET Administration Niacin 500 mg 03/08/19 10:00 03/10/19 10:14 Niaspan Er PO 500 mg DAILY BRIDGET Administration Ondansetron HCl 4 mg 03/07/19 23:40 03/10/19 10:53 Zofran IV 4 mg Q8H PRN Administration Nausea And Vomiting Oxycodone/Acetaminophen 1 tab 03/07/19 23:42 03/10/19 15:23 Percocet 5/325 PO 1 tab Q6H PRN Administration Pain, Moderate (4-6) Polyethylene Glycol 17 gm 03/10/19 11:00 03/10/19 14:34 Miralax 3350 PO 17 gm QDAY BRIDGET Administration Potassium Chloride 10 meq 03/08/19 10:00 03/10/19 10:16 K-Dur PO 10 meq QDAY BRIDGET Administration Pravastatin Sodium 80 mg 03/08/19 22:00 03/09/19 21:32 Pravachol PO 80 mg QHS BRIDGET Administration Sertraline HCl 25 mg 03/08/19 10:00 03/10/19 10:15 Zoloft PO 25 mg DAILY BRIDGET Administration Sodium Chloride 10 ml 03/08/19 10:00 03/10/19 10:15 Sodium Chloride Flush Syringe 10 Ml IV 10 ml BID BRIDGET Administration Sodium Chloride 10 ml 03/07/19 23:40 Sodium Chloride Flush Syringe 10 Ml IV PRN PRN LINE FLUSH Topiramate 50 mg 03/08/19 22:00 03/09/19 21:32 Topamax PO 50 mg QHS BRIDGET Administration
--- NOTE | 2019-03-10 17:01 | Progress Note ---
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 In emergency room, her systolic blood pressure was 68/29. Patient was at [facility] and suffered 2 cardiac arrest per daughter Lety at bedside. She went to [facility] but was only there for 2-3 days prior to coming here. The Hemodialysis center sent her here instead of [facility]. She has a huge left forearm ulcer with large scab. Patient is confused. * Chest x-ray: report reviewed (no acute findings) * CT abdomen IMPRESSION: 1. Low density liver lesions suspicious for metastases. No definite primary tumor is seen. 2. Extensive postoperative changes in the pelvis but no inflammatory process or hemorrhage identified. 3. Multiple incidental findings as described. * CT head IMPRESSION: 1. No focal mass, hemorrhage, hydrocephalus, or acute, la rge territorial infarct. Follow-up with diffusion imaging by MRI, as clinically warranted. Liver masses suspicious for mets: require further imaging with three phase liver CT a/p without and with contrast, so will need coordination and approval by Dr. Dominguez then order CT biopsy liver and coordinate this with diagnostic radiology as diagnostic radiology performs CT guided biopsies. I d/w Dr. Dominguez, no contrast as this renal failure is acute, should re-evaluate as outpatient. Hypotension: resolved with IVF treatment Acute hypoxic respiratory failure: continue to try to wean the 3.5 liters of nasal cannula O2 ARF due to ATN/Vasomotor nephropathy, not ESRD per Dr. Dominguez Nephrology is following, input noted==>patient is Acute renal failure, ATN, not ESRD Acute Metabolic encephalopathy SIRS with organ dysfunction, no sepsis, no sepsis shock because no source of in fection found so far: treated with empiric abx, cultures negative, will stop antibiotics. Seizure disorder Continue to Keppra DVT prophylaxis: Continue heparin Abnormal CT abd/pelvis with liver mass: consulted GI Suspected FAN: need outpatient sleep study Disposition: continue inpatient care, await re-placement I d/w Dr. Dominguez, this Renal failure is acute not ESRD that develop at [facility], he would not recommend contrast at this time. So, await placement History Interval history: Patient was seen and examined. Follow-up on current diagnosis of hypotension. No overnight events reported to me. Imaging, nursing note, chart, labs and old chart reviewed. I have spoken with daughter Lety and her son Troy, her granddaughter Pretty (Siddhatrh' daughter) Hospitalist Physical - Physical exam Narrative exam: Gen: chronic ill appearing, NAD, Awake, Alert, Orientated x 1 HEENT: NCAT, EOMI, PERRL, OP Clear Neck: supple, no adenopathy, no thyromegaly, no JVD CVS/Heart: RRR, normal S1S2, pulses present bilaterally Chest/Lungs: diminished bs bilateral, Symmetrical chest expansion, good air entry bilaterally GI/Abdomen: soft, NTND, good bowel sounds, no guarding or rebound /Bladder: no suprapubic tenderness, no CVA or paraspinal tenderness Extermity/Skin: multiple skin breakdowns, left forearm, sacrum MSK: FROM x 3, total left leg amputation Neuro: CN 2-12 grossly intact, doesn't follow all commands Psych: calm but confused - Constitutional Vitals: Temp Pulse Resp BP Pulse Ox 98.2 F 87 18 104/48 98 03/10/19 05:34 03/10/19 10:15 03/10/19 05:31 03/10/19 05:31 03/10/19 05:31 General appearance: Present: no acute distress, well-nourished Results - Labs CBC & Chem 7: 03/09/19 05:37 03/09/19 05:37 Labs: Laboratory Last Values WBC 11.6 K/mm3 (4.5-11.0) H 03/09/19 05:37 RBC 3.32 M/mm3 (3.65-5.03) L 03/09/19 05:37 Hgb 8.9 gm/dl (10.1-14.3) L 03/09/19 05:37 Hct 28.5 % (30.3-42.9) L 03/09/19 05:37 MCV 86 fl (79-97) 03/09/19 05:37 MCH 27 pg (28-32) L 03/09/19 05:37 MCHC 31 % (30-34) 03/09/19 05:37 RDW 17.2 % (13.2-15.2) H 03/09/19 05:37 Plt Count 117 K/mm3 (140-440) L 03/09/19 05:37 Add Manual Diff Complete 03/08/19 07:27 Total Counted 100 03/08/19 07:27 Seg Neuts % (Manual) 86.0 % (40.0-70.0) H 03/08/19 07:27 Band Neutrophils % 1.0 % 03/08/19 07:27 Lymphocytes % (Manual) 7.0 % (13.4-35.0) L 03/08/19 07:27 Reactive Lymphs % (Man) 0 % 03/08/19 07:27 Monocytes % (Manual) 3.0 % (0.0-7.3) 03/08/19 07:27 Eosinophils % (Manual) 2.0 % (0.0-4.3) 03/08/19 07:27 Basophils % (Manual) 0 % (0.0-1.8) 03/08/19 07:27 Metamyelocytes % 1.0 % 03/08/19 07:27 Myelocytes % 0 % 03/08/19 07:27 Promyelocytes % 0 % 03/08/19 07:27 Blast Cells % 0 % 03/08/19 07:27 Nucleated RBC % Not Reportable 03/08/19 07:27 Seg Neutrophils # Man 13.8 K/mm3 (1.8-7.7) H 03/08/19 07:27 Band Neutrophils # 0.2 K/mm3 03/08/19 07:27 Lymphocytes # (Manual) 1.1 K/mm3 (1.2-5.4) L 03/08/19 07:27 Abs React Lymphs (Man) 0.0 K/mm3 03/08/19 07:27 Monocytes # (Manual) 0.5 K/mm3 (0.0-0.8) 03/08/19 07:27 Eosinophils # (Manual) 0.3 K/mm3 (0.0-0.4) 03/08/19 07:27 Basophils # (Manual) 0.0 K/mm3 (0.0-0.1) 03/08/19 07:27 Metamyelocytes # 0.2 K/mm3 03/08/19 07:27 Myelocytes # 0.0 K/mm3 03/08/19 07:27 Promyelocytes # 0.0 K/mm3 03/08/19 07:27 Blast Cells # 0.0 K/mm3 03/08/19 07:27 WBC Morphology Not Reportable 03/08/19 07:27 Hypersegmented Neuts Not Reportable 03/08/19 07:27 Hyposegmented Neuts Not Reportable 03/08/19 07:27 Hypogranular Neuts Not Reportable 03/08/19 07:27 Smudge Cells Not Reportable 03/08/19 07:27 Toxic Granulation Not Reportable 03/08/19 07:27 Toxic Vacuolation Not Reportable 03/08/19 07:27 Dohle Bodies Not Reportable 03/08/19 07:27 Pelger-Huet Anomaly Not Reportable 03/08/19 07:27 Dany Rods Not Reportable 03/08/19 07:27 Platelet Estimate Consistent w auto 03/08/19 07:27 Clumped Platelets Not Reportable 03/08/19 07:27 Plt Clumps, EDTA Not Reportable 03/08/19 07:27 Large Platelets Few 03/08/19 07:27 Giant Platelets Not Reportable 03/08/19 07:27 Platelet Satelliting Not Reportable 03/08/19 07:27 Plt Morphology Comment Not Reportable 03/08/19 07:27 RBC Morphology Not Reportable 03/08/19 07:27 Dimorphic RBCs Not Reportable 03/08/19 07:27 Polychromasia Few 03/08/19 07:27 Hypochromasia Not Reportable 03/08/19 07:27 Poikilocytosis Not Reportable 03/08/19 07:27 Anisocytosis Not Reportable 03/08/19 07:27 Microcytosis Few 03/08/19 07:27 Macrocytosis Few 03/08/19 07:27 Spherocytes Not Reportable 03/08/19 07:27 Pappenheimer Bodies Not Reportable 03/08/19 07:27 Sickle Cells Not Reportable 03/08/19 07:27 Target Cells Not Reportable 03/08/19 07:27 Tear Drop Cells Not Reportable 03/08/19 07:27 Ovalocytes Not Reportable 03/08/19 07:27 Helmet Cells Not Reportable 03/08/19 07:27 Hernandez-Tulare Bodies Not Reportable 03/08/19 07:27 Almont Rings Not Reportable 03/08/19 07:27 Jaylene Cells Not Reportable 03/08/19 07:27 Bite Cells Not Reportable 03/08/19 07:27 Crenated Cell Not Reportable 03/08/19 07:27 Elliptocytes Not Reportable 03/08/19 07:27 Acanthocytes (Spur) Not Reportable 03/08/19 07:27 Rouleaux Not Reportable 03/08/19 07:27 Hemoglobin C Crystals Not Reportable 03/08/19 07:27 Schistocytes Not Reportable 03/08/19 07:27 Malaria parasites Not Reportable 03/08/19 07:27 Markos Bodies Not Reportable 03/08/19 07:27 Hem Pathologist Commnt No 03/08/19 07:27 PT 16.1 Sec. (12.2-14.9) H 03/07/19 15:07 INR 1.31 (0.87-1.13) H 03/07/19 15:07 VBG pH 7.365 (7.320-7.420) 03/07/19 15:07 Sodium 139 mmol/L (137-145) 03/09/19 05:37 Potassium 4.8 mmol/L (3.6-5.0) 03/09/19 05:37 Chloride 100.5 mmol/L (98-107) 03/09/19 05:37 Carbon Dioxide 22 mmol/L (22-30) 03/09/19 05:37 Anion Gap 21 mmol/L 03/09/19 05:37 BUN 23 mg/dL (7-17) H 03/09/19 05:37 Creatinine 2.6 mg/dL (0.7-1.2) H 03/09/19 05:37 Estimated GFR 21 ml/min 03/09/19 05:37 BUN/Creatinine Ratio 9 % 03/09/19 05:37 Glucose 78 mg/dL (65-100) 03/09/19 05:37 POC Glucose 131 (70-105) H 03/10/19 16:19 Hemoglobin A1c 5.7 % (4-6) 03/08/19 00:03 Lactic Acid 1.10 mmol/L (0.7-2.0) 03/07/19 18:06 Calcium 8.1 mg/dL (8.4-10.2) L 03/09/19 05:37 Phosphorus 5.70 mg/dL (2.5-4.5) H 03/08/19 07:27 Total Bilirubin 0.50 mg/dL (0.1-1.2) 03/07/19 15:07 AST 20 units/L (5-40) 03/07/19 15:07 ALT 19 units/L (7-56) 03/07/19 15:07 Alkaline Phosphatase 131 units/L (35-129) H 03/07/19 15:07 Troponin T 0.031 ng/mL (0.00-0.029) H 03/07/19 20:52 Total Protein 8.6 g/dL (6.3-8.2) H 03/07/19 15:07 Albumin 2.9 g/dL (3.9-5) L 03/07/19 15:07 Albumin/Globulin Ratio 0.5 % 03/07/19 15:07 Triglycerides 122 mg/dL (2-149) 03/07/19 15:14 Cholesterol 78 mg/dL (50-199) 03/07/19 15:14 LDL Cholesterol Direct 19 mg/dL (50-130) L 03/07/19 15:14 HDL Cholesterol 37 mg/dL (40-59) L 03/07/19 15:14 Cholesterol/HDL Ratio 2.10 % 03/07/19 15:14 Random Vancomycin 14.9 ug/mL (0-40.0) 03/09/19 05:37 Hepatitis A IgM Ab Non-reactive (NonReactive) 03/08/19 10:24 Hep Bs Antigen Non-reactive (Negative) 03/08/19 10:24 Hep B Core IgM Ab Non-reactive (NonReactive) 03/08/19 10:24 Hepatitis C Antibody Non-reactive (NonReactive) 03/08/19 10:24 Active Medications - Current Medications Current Medications: Generic Name Dose Route Start Last Admin Trade Name Freq PRN Reason Stop Dose Admin Acetaminophen 650 mg 03/07/19 23:40 03/10/19 03:14 Tylenol PO 650 mg Q4H PRN Administration Pain MILD(1-3)/Fever >100.5/GRAY Aspirin 325 mg 03/08/19 10:00 03/10/19 10:15 Aspirin PO 325 mg DAILY BRIDGET Administration Bisacodyl 10 mg 03/10/19 10:52 Dulcolax PO QDAY PRN Constipation Carvedilol 25 mg 03/07/19 23:45 03/10/19 10:15 Coreg PO 25 mg BID BRIDGET Administration Epoetin Jordan 10,000 unit 03/08/19 09:14 Procrit SUB-Q TASHA PRN hemodialysis Hydromorphone HCl 0.25 mg 03/07/19 23:42 Dilaudid IV Q3H PRN Pain, Moderate (4-6) Hydroxyzine HCl 25 mg 03/08/19 08:00 03/10/19 14:34 Atarax PO 25 mg TID BRIDGET Administration Cefepime HCl 1 gm in 100 mls @ 200 mls/hr 03/08/19 01:00 03/10/19 00:51 Cefepime/Ns 1 Gm/100 Ml IV 200 mls/hr Q24H BRIDGET Administration Protocol Sodium Chloride 100 mls @ 999 mls/hr 03/08/19 09:14 Nacl 0.9% IV TASHA PRN Hypotension Levetiracetam 500 mg 03/07/19 23:45 03/10/19 10:16 Keppra PO 500 mg BID BRIDGET Administration Loratadine 10 mg 03/08/19 10:00 03/10/19 10:16 Claritin PO 10 mg DAILY BRIDGET Administration Niacin 500 mg 03/08/19 10:00 03/10/19 10:14 Niaspan Er PO 500 mg DAILY BRIDGET Administration Ondansetron HCl 4 mg 03/07/19 23:40 03/10/19 10:53 Zofran IV 4 mg Q8H PRN Administration Nausea And Vomiting Oxycodone/Acetaminophen 1 tab 03/07/19 23:42 03/10/19 15:23 Percocet 5/325 PO 1 tab Q6H PRN Administration Pain, Moderate (4-6) Polyethylene Glycol 17 gm 03/10/19 11:00 03/10/19 14:34 Miralax 3350 PO 17 gm QDAY BRIDGET Administration Pravastatin Sodium 80 mg 03/08/19 22:00 03/09/19 21:32 Pravachol PO 80 mg QHS BRIDGET Administration Sertraline HCl 25 mg 03/08/19 10:00 03/10/19 10:15 Zoloft PO 25 mg DAILY BRIDGET Administration Sodium Chloride 10 ml 03/08/19 10:00 03/10/19 10:15 Sodium Chloride Flush Syringe 10 Ml IV 10 ml BID BRIDGET Administration Sodium Chloride 10 ml 03/07/19 23:40 Sodium Chloride Flush Syringe 10 Ml IV PRN PRN LINE FLUSH Topiramate 50 mg 03/08/19 22:00 03/09/19 21:32 Topamax PO 50 mg QHS BRIDGET Administration Nutrition/Malnutrition Assess - Dietary Evaluation Nutrition/Malnutrition Findings: Nutrition Notes Start: 03/08/19 12:58 Freq: Status: Active Protocol: Document 03/08/19 12:58 KS (Rec: 03/08/19 13:12 KS [id number]) Co-Sign 03/08/19 12:58 LP Nutrition Notes Need for Assessment generated from: travel registered nurse icu Initial or Follow up Assessment Current Diagnosis CKD (stage V CKD),Diabetes, Hypertension Other Pertinent Diagnosis on HD, craniotomy for brain tumor, seizures, cardiac stent , pacemaker Current Diet Renal Diet Labs/Tests CO2 20 BUN 45 CR 4.9 Glu 110 Pertinent Medications Reviewed Height 5 ft 5 in Weight 98.2 kg [place] Body Weight (kg) 56.81 BMI 36.0 Intake Prior to Admission Good Weight Status Obese Subjective/Other Information RN screen for difficulty chewing. Pt unsure if she has lost or gained any wt recently . Pt consumed 25% of breakfast tray this morning. States appetite has been decreased for "a few days." Pt states she is in pain from being consipated, requests laxative. Pt denies difficulty chewing or swallowing. Pt open to trying Nepro ONS. Burn Absent Trauma Absent GI Symptoms Constipation Current % PO Poor (25-49%) Minimum of two criteria No physical signs of malnutrition #1 Nutrition Diagnosis Inadequate oral intake Etiology decreased appetite, constipation As Evidenced by Signs and Symptoms pt consuming 25% of meals Is patient on ventilator? No Is Patient Ambulatory and/or Out of Bed Yes REE-([facility]-ambulatory/OOB) [ 1895.244 [id number]] Calculation Used for Recommendations [facility] Additional Notes PRO: >118g/day (>1.2g/kg/day) Fluid: 1000-1500mL/day or per Nutrition Intervention Change Diet Order: Continue current diet Add Supplement/Snack (indicate name/kcal Nepro BID /protein ) Provides kCal: 850 Provides Protein (gm) 38 Goal #1 Meet at least 75% of energy and PRO needs via PO and ONS intakes Anticipated Discharge Needs: Renal diet Follow-Up By: 03/12/19 Additional Comments Follow for PO and ONS intakes
--- NOTE | 2019-03-10 17:48 | Gastroenterology Progress Note ---
Assessment and Plan # Liver lesions - low density ill-defined hepatic lesions, concerning for mets. No primary tumor noted. This is on CT a/p without contrast. - no known liver disease per family but imaging concerning for possible cirrhosis. - normal liver enzymes. - INR elevated at 1.3 - acute viral hep panel negative. Recommend - evaluation with further imaging including CT liver protocol if can be arranged with nephrology. given acute nature of kidney failure, nephrology recommends against contrast. Will need to re-evaluate as outpatient for further work up. - recommend bowel regime for constipation, which is likely due to pain medication. - will sign off at this time. please call with questions. Subjective Date of service: 03/10/19 Interval history: No acute events o/n. Patient without any BM today. Objective - Constitutional Vitals: Temp Pulse Resp BP Pulse Ox 98.2 F 87 18 104/48 98 03/10/19 05:34 03/10/19 10:15 03/10/19 05:31 03/10/19 05:31 03/10/19 05:31 General appearance: no acute distress - EENT Eyes: EOM intact ENT: hearing intact - Neck Neck: supple - Respiratory Respiratory effort: normal - Cardiovascular Rhythm: regular Heart Sounds: Present: S1 & S2 - Gastrointestinal General gastrointestinal: Present: soft, tender, non-distended - Integumentary Integumentary: Present: clear, warm - Labs CBC & Chem 7: 03/09/19 05:37 03/09/19 05:37 Labs: Laboratory Results - last 24 hr 03/10/19 03/10/19 03/10/19 03:16 08:45 12:27 POC Glucose 82 83 98 03/10/19 16:19 POC Glucose 131 H
[2019-03-10] MEDS: PRAVASTATIN 80 MG TAB PO SCH (21:30)
[2019-03-10] MEDS: TOPIRAMATE TAB 25 MG TAB PO SCH (21:30)
[2019-03-11] MEDS: oxyCODONE /ACETAMINOPHEN 5-325MG TAB PO PRN ×3 (01:24→20:50)
[2019-03-11] MEDS: hydrOXYzine HCL 25 MG TAB PO SCH ×3 (08:10→20:32)
[2019-03-11 08:44] LABS: Hematocrit 28.5 % (30.3-42.9); Mean Corpuscular HGB Conc 32 % (30-34); Mean Corpuscular Volume 85 fl (79-97); Platelet Count 317 K/mm3 (140-440); Red Blood Count 3.36 M/mm3 (3.65-5.03); Red Cell Distribution Width 17.5 % (13.2-15.2)
[2019-03-11 09:15] LABS: Calcium 8.5 mg/dL (8.4-10.2)
[2019-03-11] MEDS: levETIRAcetam 500 MG TAB PO SCH ×2 (09:45→21:32)
[2019-03-11] MEDS: LORATADINE (NF) 10 MG TAB PO SCH (09:45)
[2019-03-11] MEDS: carvediloL 25 MG TAB PO SCH ×2 (09:46→21:32)
[2019-03-11] MEDS: SERTRALINE 25 MG TAB PO SCH (09:46)
[2019-03-11] MEDS: NIACIN ER 500 MG TAB PO SCH (09:47)
[2019-03-11] MEDS: ASPIRIN 325 MG TAB PO SCH (09:47)
[2019-03-11] MEDS: POLYETHYLENE GLYCOL 3350 17 GM POWDER PO SCH (09:47)
[2019-03-11] MEDS: ONDANSETRON 4 MG/2 ML INJ IV PRN (14:19)
--- NOTE | 2019-03-11 14:47 | Progress Note ---
Assessment and Plan 1. Acute kidney injury: VasomotorAKI superimposed on CKD stage 4 in the setting ofhypotension/ septic shock. Most likely ATN. GIOVANNY, ANCA, Complements and SPEP are normal / negative. No renal recoveryso far. Renal prognosis is guarded to poor. Suspect ESRD. Avoid nephrotoxic agents. Meds dosage based on GFR. Patient is on maintenance hemodialysis since 02/08/2019. Hemodialysis: 03/08. Patient has outpatient hemodialysis chair at [facility]. 2. FEN: Volume depletion,treated with IV fluids. Anion-gap MA,2/2 PAULA. Monitor lytes. 3. Septic shock: BP is better. Not on pressors. 4.H/o Cardiac arrest. 5. Encephalopathy. 6.Hepatic Masses. 7.Anemia: POA. PRBC for Hb below 7. Epogen with HD. Examination: General appearance: well-developed, well-nourished, appears stated age, no distress HEENT: ATNC, PHILIPPE Neck: supple, trachea midline Respiratory: Clear to Ascultation Cardiology: regular, S1S2, no murmur Abdomen: soft, normoactive bowel sounds, not tender, obese Integumentary: no rash Neurologic: confused, disoriented, able to move extremities Ext: no edema, L AKA Hemodialysis access: R IJ tunnel catheter Subjective Date of service: 03/11/19 Interval history: The patient was seen and examined at the bedside. Objective - Vital Signs Vital signs: Vital Signs - 12hr 03/11/19 03/11/19 03/11/19 04:00 07:57 09:46 Temperature 97.8 F Pulse Rate 83 82 84 Pulse Rate [ Apical] Respiratory 18 Rate Blood Pressure 122/55 122/55 Blood Pressure 116/57 [Left] O2 Sat by Pulse 95 100 Oximetry 03/11/19 03/11/19 10:00 14:20 Temperature Pulse Rate Pulse Rate [ 87 Apical] Respiratory 17 18 Rate Blood Pressure Blood Pressure [Left] O2 Sat by Pulse 96 Oximetry - Lab 03/11/19 07:41 03/11/19 07:41 Most recent lab results Calcium 8.5 mg/dL (8.4-10.2) 03/11/19 07:41 Phosphorus 5.70 mg/dL (2.5-4.5) H 03/08/19 07:27 Magnesium 1.70 mg/dL (1.7-2.3) 03/11/19 07:41 Medications & Allergies - Medications Allergies/Adverse Reactions: Allergies morphine Allergy (Uncoded 03/08/19 02:11) Swelling Home Medications: Home Medications Medication Instructions Recorded Confirmed Last Taken Type Aspirin 325 mg PO DAILY 08/08/13 03/08/19 Unknown History Gabapentin 300 mg PO TID 08/08/13 03/08/19 08/19/13 20:00 History Iron Ag/C/B12/Ca/Suc.acid/Stom 1 tab PO DAILY 08/08/13 03/08/19 08/19/13 19:00 History [Multigen Caplet] Loratadine [Claritin] 10 mg PO DAILY 08/08/13 03/08/19 08/19/13 11:00 History Sertraline [Zoloft] 50 mg PO DAILY 08/08/13 03/08/19 08/19/13 11:00 History Simvastatin 40 mg PO DAILY 08/08/13 03/08/19 08/19/13 11:00 History Topiramate [Topamax TAB] 50 mg PO HS 08/08/13 03/08/19 08/19/13 20:00 History carvediloL [Coreg] 25 mg PO BID 08/08/13 03/08/19 08/20/13 07:25 History hydrOXYzine HCL [Atarax] 25 mg PO TID 08/08/13 03/08/19 08/19/13 20:00 History levETIRAcetam [Keppra TAB] 500 mg PO BID 08/08/13 03/08/19 08/19/13 20:00 History Acetaminophen/Codeine [Tylenol #3] 1 tab PO Q6H PRN #20 tab 08/20/13 03/08/19 Unknown Rx Indomethacin [Indocin] 50 mg PO BID PRN 03/08/19 03/08/19 Unknown History Losartan/Hydrochlorothiazide 1 each PO QDAY 03/08/19 03/08/19 Unknown History [Losartan-Hctz 50-12.5 mg Tab] Montelukast [Singulair] 10 mg PO QPM 03/08/19 03/08/19 Unknown History Potassium Chloride [K-Dur] 10 meq PO BID 03/08/19 03/08/19 Unknown History Active Medications: Generic Name Dose Route Start Last Admin Trade Name Freq PRN Reason Stop Dose Admin Acetaminophen 650 mg 03/07/19 23:40 03/10/19 03:14 Tylenol PO 650 mg Q4H PRN Administration Pain MILD(1-3)/Fever >100.5/GRAY Aspirin 325 mg 03/08/19 10:00 03/11/19 09:47 Aspirin PO 325 mg DAILY BRIDGET Administration Bisacodyl 10 mg 03/10/19 10:52 Dulcolax PO QDAY PRN Constipation Carvedilol 25 mg 03/07/19 23:45 03/11/19 09:46 Coreg PO 25 mg BID BRIDGET Administration Epoetin Jordan 10,000 unit 03/08/19 09:14 Procrit SUB-Q TASHA PRN hemodialysis Hydromorphone HCl 0.25 mg 03/07/19 23:42 Dilaudid IV Q3H PRN Pain, Moderate (4-6) Hydroxyzine HCl 25 mg 03/08/19 08:00 03/11/19 08:10 Atarax PO 25 mg TID BRIDGET Administration Sodium Chloride 100 mls @ 999 mls/hr 03/08/19 09:14 Nacl 0.9% IV TASHA PRN Hypotension Levetiracetam 500 mg 03/07/19 23:45 03/11/19 09:45 Keppra PO 500 mg BID BRIDGET Administration Loratadine 10 mg 03/08/19 10:00 03/11/19 09:45 Claritin PO 10 mg DAILY BRIDGET Administration Niacin 500 mg 03/08/19 10:00 03/11/19 09:47 Niaspan Er PO 500 mg DAILY BRIDGET Administration Ondansetron HCl 4 mg 03/07/19 23:40 03/11/19 14:19 Zofran IV 4 mg Q8H PRN Administration Nausea And Vomiting Oxycodone/Acetaminophen 1 tab 03/07/19 23:42 03/11/19 14:20 Percocet 5/325 PO 1 tab Q6H PRN Administration Pain, Moderate (4-6) Polyethylene Glycol 17 gm 03/10/19 11:00 03/11/19 09:47 Miralax 3350 PO 17 gm QDAY BRIDGET Administration Pravastatin Sodium 80 mg 03/08/19 22:00 03/10/19 21:30 Pravachol PO 80 mg QHS BRIDGET Administration Sertraline HCl 25 mg 03/08/19 10:00 03/11/19 09:46 Zoloft PO 25 mg DAILY BRIDGET Administration Sodium Chloride 10 ml 03/08/19 10:00 03/11/19 09:47 Sodium Chloride Flush Syringe 10 Ml IV 10 ml BID BRIDGET Administration Sodium Chloride 10 ml 03/07/19 23:40 Sodium Chloride Flush Syringe 10 Ml IV PRN PRN LINE FLUSH Topiramate 50 mg 03/08/19 22:00 03/10/19 21:30 Topamax PO 50 mg QHS BRIDGET Administration
--- NOTE | 2019-03-11 16:52 | Progress Note ---
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 In emergency room, her systolic blood pressure was 68/29. Patient was at [facility] and suffered 2 cardiac arrest per daughter Lety at bedside. She went to [facility] but was only there for 2-3 days prior to coming here. The Hemodialysis center sent her here instead of [facility]. She has a huge left forearm ulcer with large scab. Patient is confused. * Chest x-ray: report reviewed (no acute findings) * CT abdomen IMPRESSION: 1. Low density liver lesions suspicious for metastases. No definite primary tumor is seen. 2. Extensive postoperative changes in the pelvis but no inflammatory process or hemorrhage identified. 3. Multiple incidental findings as described. * CT head IMPRESSION: 1. No focal mass, hemorrhage, hydrocephalus, or acute, la rge territorial infarct. Follow-up with diffusion imaging by MRI, as clinically warranted. Liver masses suspicious for mets: require further imaging with three phase liver CT a/p without and with contrast, so will need coordination and approval by Dr. Dominguez then order CT biopsy liver and coordinate this with diagnostic radiology as diagnostic radiology performs CT guided biopsies. I d/w Dr. Dominguez, no contrast as this renal failure is acute, should re-evaluate as outpatient. Hypotension: resolved with IVF treatment Acute hypoxic respiratory failure: continue to try to wean the 3.5 liters of nasal cannula O2 ARF due to ATN/Vasomotor nephropathy, not ESRD per Dr. Dominguez Nephrology is following, input noted==>patient is Acute renal failure, ATN, not ESRD Acute Metabolic encephalopathy SIRS with organ dysfunction, no sepsis, no sepsis shock because no source of in fection found so far: treated with empiric abx, cultures negative, will stop antibiotics. Seizure disorder Continue to Keppra DVT prophylaxis: Continue heparin Abnormal CT abd/pelvis with liver mass: consulted GI Suspected FAN: need outpatient sleep study Disposition: continue inpatient care, await re-placement I d/w Dr. Dominguez, this Renal failure is acute not ESRD that develop at [facility], he would not recommend contrast at this time. So, await placement History Interval history: Patient was seen and examined. Follow-up on current diagnosis of hypotension. No overnight events reported to me. Imaging, nursing note, chart, labs and old chart reviewed. I have spoken with daughter Lety and her son Troy, her granddaughter Pretty (Siddharth' daughter) Hospitalist Physical - Physical exam Narrative exam: Gen: chronic ill appearing, NAD, Awake, Alert, Orientated x 1 HEENT: NCAT, EOMI, PERRL, OP Clear Neck: supple, no adenopathy, no thyromegaly, no JVD CVS/Heart: RRR, normal S1S2, pulses present bilaterally Chest/Lungs: diminished bs bilateral, Symmetrical chest expansion, good air entry bilaterally GI/Abdomen: soft, NTND, good bowel sounds, no guarding or rebound /Bladder: no suprapubic tenderness, no CVA or paraspinal tenderness Extermity/Skin: multiple skin breakdowns, left forearm, sacrum MSK: FROM x 3, total left leg amputation Neuro: CN 2-12 grossly intact, doesn't follow all commands Psych: calm but confused - Constitutional Vitals: Temp Pulse Resp BP Pulse Ox 97.8 F 87 18 122/55 96 03/11/19 04:00 03/11/19 10:00 03/11/19 14:20 03/11/19 09:46 03/11/19 10:00 General appearance: Present: no acute distress, well-nourished Results - Labs CBC & Chem 7: 03/11/19 07:41 03/11/19 07:41 Labs: Laboratory Last Values WBC 10.0 K/mm3 (4.5-11.0) 03/11/19 07:41 RBC 3.36 M/mm3 (3.65-5.03) L 03/11/19 07:41 Hgb 9.0 gm/dl (10.1-14.3) L 03/11/19 07:41 Hct 28.5 % (30.3-42.9) L 03/11/19 07:41 MCV 85 fl (79-97) 03/11/19 07:41 MCH 27 pg (28-32) L 03/11/19 07:41 MCHC 32 % (30-34) 03/11/19 07:41 RDW 17.5 % (13.2-15.2) H 03/11/19 07:41 Plt Count 317 K/mm3 (140-440) D 03/11/19 07:41 Add Manual Diff Complete 03/08/19 07:27 Total Counted 100 03/08/19 07:27 Seg Neuts % (Manual) 86.0 % (40.0-70.0) H 03/08/19 07:27 Band Neutrophils % 1.0 % 03/08/19 07:27 Lymphocytes % (Manual) 7.0 % (13.4-35.0) L 03/08/19 07:27 Reactive Lymphs % (Man) 0 % 03/08/19 07:27 Monocytes % (Manual) 3.0 % (0.0-7.3) 03/08/19 07:27 Eosinophils % (Manual) 2.0 % (0.0-4.3) 03/08/19 07:27 Basophils % (Manual) 0 % (0.0-1.8) 03/08/19 07:27 Metamyelocytes % 1.0 % 03/08/19 07:27 Myelocytes % 0 % 03/08/19 07:27 Promyelocytes % 0 % 03/08/19 07:27 Blast Cells % 0 % 03/08/19 07:27 Nucleated RBC % Not Reportable 03/08/19 07:27 Seg Neutrophils # Man 13.8 K/mm3 (1.8-7.7) H 03/08/19 07:27 Band Neutrophils # 0.2 K/mm3 03/08/19 07:27 Lymphocytes # (Manual) 1.1 K/mm3 (1.2-5.4) L 03/08/19 07:27 Abs React Lymphs (Man) 0.0 K/mm3 03/08/19 07:27 Monocytes # (Manual) 0.5 K/mm3 (0.0-0.8) 03/08/19 07:27 Eosinophils # (Manual) 0.3 K/mm3 (0.0-0.4) 03/08/19 07:27 Basophils # (Manual) 0.0 K/mm3 (0.0-0.1) 03/08/19 07:27 Metamyelocytes # 0.2 K/mm3 03/08/19 07:27 Myelocytes # 0.0 K/mm3 03/08/19 07:27 Promyelocytes # 0.0 K/mm3 03/08/19 07:27 Blast Cells # 0.0 K/mm3 03/08/19 07:27 WBC Morphology Not Reportable 03/08/19 07:27 Hypersegmented Neuts Not Reportable 03/08/19 07:27 Hyposegmented Neuts Not Reportable 03/08/19 07:27 Hypogranular Neuts Not Reportable 03/08/19 07:27 Smudge Cells Not Reportable 03/08/19 07:27 Toxic Granulation Not Reportable 03/08/19 07:27 Toxic Vacuolation Not Reportable 03/08/19 07:27 Dohle Bodies Not Reportable 03/08/19 07:27 Pelger-Huet Anomaly Not Reportable 03/08/19 07:27 Dany Rods Not Reportable 03/08/19 07:27 Platelet Estimate Consistent w auto 03/08/19 07:27 Clumped Platelets Not Reportable 03/08/19 07:27 Plt Clumps, EDTA Not Reportable 03/08/19 07:27 Large Platelets Few 03/08/19 07:27 Giant Platelets Not Reportable 03/08/19 07:27 Platelet Satelliting Not Reportable 03/08/19 07:27 Plt Morphology Comment Not Reportable 03/08/19 07:27 RBC Morphology Not Reportable 03/08/19 07:27 Dimorphic RBCs Not Reportable 03/08/19 07:27 Polychromasia Few 03/08/19 07:27 Hypochromasia Not Reportable 03/08/19 07:27 Poikilocytosis Not Reportable 03/08/19 07:27 Anisocytosis Not Reportable 03/08/19 07:27 Microcytosis Few 03/08/19 07:27 Macrocytosis Few 03/08/19 07:27 Spherocytes Not Reportable 03/08/19 07:27 Pappenheimer Bodies Not Reportable 03/08/19 07:27 Sickle Cells Not Reportable 03/08/19 07:27 Target Cells Not Reportable 03/08/19 07:27 Tear Drop Cells Not Reportable 03/08/19 07:27 Ovalocytes Not Reportable 03/08/19 07:27 Helmet Cells Not Reportable 03/08/19 07:27 Hernandez-[place] Bodies Not Reportable 03/08/19 07:27 Martha Rings Not Reportable 03/08/19 07:27 Jaylene Cells Not Reportable 03/08/19 07:27 Bite Cells Not Reportable 03/08/19 07:27 Crenated Cell Not Reportable 03/08/19 07:27 Elliptocytes Not Reportable 03/08/19 07:27 Acanthocytes (Spur) Not Reportable 03/08/19 07:27 Rouleaux Not Reportable 03/08/19 07:27 Hemoglobin C Crystals Not Reportable 03/08/19 07:27 Schistocytes Not Reportable 03/08/19 07:27 Malaria parasites Not Reportable 03/08/19 07:27 Markos Bodies Not Reportable 03/08/19 07:27 Hem Pathologist Commnt No 03/08/19 07:27 PT 16.1 Sec. (12.2-14.9) H 03/07/19 15:07 INR 1.31 (0.87-1.13) H 03/07/19 15:07 VBG pH 7.365 (7.320-7.420) 03/07/19 15:07 Sodium 140 mmol/L (137-145) 03/11/19 07:41 Potassium 4.0 mmol/L (3.6-5.0) 03/11/19 07:41 Chloride 99.8 mmol/L (98-107) 03/11/19 07:41 Carbon Dioxide 23 mmol/L (22-30) 03/11/19 07:41 Anion Gap 21 mmol/L 03/11/19 07:41 BUN 37 mg/dL (7-17) H 03/11/19 07:41 Creatinine 3.9 mg/dL (0.7-1.2) H 03/11/19 07:41 Estimated GFR 13 ml/min 03/11/19 07:41 BUN/Creatinine Ratio 9 % 03/11/19 07:41 Glucose 84 mg/dL (65-100) 03/11/19 07:41 POC Glucose 92 (70-105) 03/11/19 12:19 Hemoglobin A1c 5.7 % (4-6) 03/08/19 00:03 Lactic Acid 1.10 mmol/L (0.7-2.0) 03/07/19 18:06 Calcium 8.5 mg/dL (8.4-10.2) 03/11/19 07:41 Phosphorus 5.70 mg/dL (2.5-4.5) H 03/08/19 07:27 Magnesium 1.70 mg/dL (1.7-2.3) 03/11/19 07:41 Total Bilirubin 0.50 mg/dL (0.1-1.2) 03/07/19 15:07 AST 20 units/L (5-40) 03/07/19 15:07 ALT 19 units/L (7-56) 03/07/19 15:07 Alkaline Phosphatase 131 units/L (35-129) H 03/07/19 15:07 Troponin T 0.031 ng/mL (0.00-0.029) H 03/07/19 20:52 Total Protein 8.6 g/dL (6.3-8.2) H 03/07/19 15:07 Albumin 2.9 g/dL (3.9-5) L 03/07/19 15:07 Albumin/Globulin Ratio 0.5 % 03/07/19 15:07 Triglycerides 122 mg/dL (2-149) 03/07/19 15:14 Cholesterol 78 mg/dL (50-199) 03/07/19 15:14 LDL Cholesterol Direct 19 mg/dL (50-130) L 03/07/19 15:14 HDL Cholesterol 37 mg/dL (40-59) L 03/07/19 15:14 Cholesterol/HDL Ratio 2.10 % 03/07/19 15:14 Random Vancomycin 14.9 ug/mL (0-40.0) 03/09/19 05:37 Hepatitis A IgM Ab Non-reactive (NonReactive) 03/08/19 10:24 Hep Bs Antigen Non-reactive (Negative) 03/08/19 10:24 Hep B Core IgM Ab Non-reactive (NonReactive) 03/08/19 10:24 Hepatitis C Antibody Non-reactive (NonReactive) 03/08/19 10:24 Active Medications - Current Medications Current Medications: Generic Name Dose Route Start Last Admin Trade Name Freq PRN Reason Stop Dose Admin Acetaminophen 650 mg 03/07/19 23:40 03/10/19 03:14 Tylenol PO 650 mg Q4H PRN Administration Pain MILD(1-3)/Fever >100.5/GRAY Aspirin 325 mg 03/08/19 10:00 03/11/19 09:47 Aspirin PO 325 mg DAILY BRIDGET Administration Bisacodyl 10 mg 03/10/19 10:52 Dulcolax PO QDAY PRN Constipation Carvedilol 25 mg 03/07/19 23:45 03/11/19 09:46 Coreg PO 25 mg BID BRIDGET Administration Epoetin Jordan 10,000 unit 03/08/19 09:14 Procrit SUB-Q TASHA PRN hemodialysis Hydromorphone HCl 0.25 mg 03/07/19 23:42 Dilaudid IV Q3H PRN Pain, Moderate (4-6) Hydroxyzine HCl 25 mg 03/08/19 08:00 03/11/19 15:00 Atarax PO Not Given TID [facility] Sodium Chloride 100 mls @ 999 mls/hr 03/08/19 09:14 Nacl 0.9% IV TASHA PRN Hypotension Levetiracetam 500 mg 03/07/19 23:45 03/11/19 09:45 Keppra PO 500 mg BID BRIDGET Administration Loratadine 10 mg 03/08/19 10:00 03/11/19 09:45 Claritin PO 10 mg DAILY BRIDGET Administration Niacin 500 mg 03/08/19 10:00 03/11/19 09:47 Niaspan Er PO 500 mg DAILY BRIDGET Administration Ondansetron HCl 4 mg 03/07/19 23:40 03/11/19 14:19 Zofran IV 4 mg Q8H PRN Administration Nausea And Vomiting Oxycodone/Acetaminophen 1 tab 03/07/19 23:42 03/11/19 14:20 Percocet 5/325 PO 1 tab Q6H PRN Administration Pain, Moderate (4-6) Polyethylene Glycol 17 gm 03/10/19 11:00 03/11/19 09:47 Miralax 3350 PO 17 gm QDAY BRIDGET Administration Pravastatin Sodium 80 mg 03/08/19 22:00 03/10/19 21:30 Pravachol PO 80 mg QHS BRIDGET Administration Sertraline HCl 25 mg 03/08/19 10:00 03/11/19 09:46 Zoloft PO 25 mg DAILY BRIDGET Administration Sodium Chloride 10 ml 03/08/19 10:00 03/11/19 09:47 Sodium Chloride Flush Syringe 10 Ml IV 10 ml BID BRIDGET Administration Sodium Chloride 10 ml 03/07/19 23:40 Sodium Chloride Flush Syringe 10 Ml IV PRN PRN LINE FLUSH Topiramate 50 mg 03/08/19 22:00 03/10/19 21:30 Topamax PO 50 mg QHS BRIDGET Administration Nutrition/Malnutrition Assess - Dietary Evaluation Nutrition/Malnutrition Findings: Nutrition Notes Start: 03/08/19 12:58 Freq: Status: Active Protocol: Document 03/08/19 12:58 KS (Rec: 03/08/19 13:12 KS [id number]) Co-Sign 03/08/19 12:58 LP Nutrition Notes Need for Assessment generated from: content coordinator Initial or Follow up Assessment Current Diagnosis CKD (stage V CKD),Diabetes, Hypertension Other Pertinent Diagnosis on HD, craniotomy for brain tumor, seizures, cardiac stent , pacemaker Current Diet Renal Diet Labs/Tests CO2 20 BUN 45 CR 4.9 Glu 110 Pertinent Medications Reviewed Height 5 ft 5 in Weight 98.2 kg [place] Body Weight (kg) 56.81 BMI 36.0 Intake Prior to Admission Good Weight Status Obese Subjective/Other Information RN screen for difficulty chewing. Pt unsure if she has lost or gained any wt recently . Pt consumed 25% of breakfast tray this morning. States appetite has been decreased for "a few days." Pt states she is in pain from being consipated, requests laxative. Pt denies difficulty chewing or swallowing. Pt open to trying Nepro ONS. Burn Absent Trauma Absent GI Symptoms Constipation Current % PO Poor (25-49%) Minimum of two criteria No physical signs of malnutrition #1 Nutrition Diagnosis Inadequate oral intake Etiology decreased appetite, constipation As Evidenced by Signs and Symptoms pt consuming 25% of meals Is patient on ventilator? No Is Patient Ambulatory and/or Out of Bed Yes REE-([place]. Jeor-ambulatory/OOB) [ 1895.244 [id number]] Calculation Used for Recommendations [facility] Additional Notes PRO: >118g/day (>1.2g/kg/day) Fluid: 1000-1500mL/day or per MD Nutrition Intervention Change Diet Order: Continue current diet Add Supplement/Snack (indicate name/kcal Nepro BID /protein ) Provides kCal: 850 Provides Protein (gm) 38 Goal #1 Meet at least 75% of energy and PRO needs via PO and ONS intakes Anticipated Discharge Needs: Renal diet Follow-Up By: 03/12/19 Additional Comments Follow for PO and ONS intakes
[2019-03-11] MEDS: PRAVASTATIN 80 MG TAB PO SCH (21:32)
[2019-03-11] MEDS: TOPIRAMATE TAB 25 MG TAB PO SCH (21:34)
[2019-03-12] MEDS: oxyCODONE /ACETAMINOPHEN 5-325MG TAB PO PRN ×3 (03:58→16:56)
[2019-03-12 09:00] LABS: Hematocrit 28.4 % (30.3-42.9); Hemoglobin 8.8 gm/dl (10.1-14.3); Mean Corpuscular HGB Conc 31 % (30-34); Mean Corpuscular Volume 84 fl (79-97); Platelet Count 310 K/mm3 (140-440); Red Blood Count 3.36 M/mm3 (3.65-5.03); Red Cell Distribution Width 17.7 % (13.2-15.2)
[2019-03-12 09:22] LABS: Calcium 8.3 mg/dL (8.4-10.2)
[2019-03-12] MEDS ORDERED: SODIUM CHLORIDE 0.9% 100 ML IV PRN ×2 (10:00→16:17)
[2019-03-12] MEDS: NIACIN ER 500 MG TAB PO SCH (10:43)
[2019-03-12] MEDS: carvediloL 25 MG TAB PO SCH ×2 (10:44→22:59)
[2019-03-12] MEDS: LORATADINE (NF) 10 MG TAB PO SCH (10:44)
[2019-03-12] MEDS: levETIRAcetam 500 MG TAB PO SCH ×2 (10:45→22:59)
[2019-03-12] MEDS: ASPIRIN 325 MG TAB PO SCH (10:45)
[2019-03-12] MEDS: SERTRALINE 25 MG TAB PO SCH (10:45)
[2019-03-12] MEDS: POLYETHYLENE GLYCOL 3350 17 GM POWDER PO SCH (10:49)
[2019-03-12] MEDS: hydrOXYzine HCL 25 MG TAB PO SCH ×2 (10:55→22:59)
--- NOTE | 2019-03-12 14:10 | Progress Note ---
Assessment and Plan 1. Acute kidney injury: VasomotorAKI superimposed on CKD stage 4 in the setting ofhypotension/ septic shock. Most likely ATN. GIOVANNY, ANCA, Complements and SPEP are normal / negative. No renal recoveryso far. Renal prognosis is guarded to poor. Suspect ESRD. Avoid nephrotoxic agents. Meds dosage based on GFR. Patient is on maintenance hemodialysis since 02/08/2019. Hemodialysis: 03/08. Patient has outpatient hemodialysis chair at [facility]. Unable to dialyze today due to catheter malfunction. 2. FEN: Volume depletion,treated with IV fluids. Anion-gap MA,2/2 PAULA. Monitor lytes. 3. Septic shock: BP is better. Not on pressors. 4.H/o Cardiac arrest. 5. Encephalopathy. 6.Hepatic Masses. 7.Anemia: POA. PRBC for Hb below 7. Epogen with HD. Examination: General appearance: well-developed, well-nourished, appears stated age, no distress HEENT: ATNC, PHILIPPE Neck: supple, trachea midline Respiratory: Clear to Ascultation Cardiology: regular, S1S2, no murmur Abdomen: soft, normoactive bowel sounds, not tender, obese Integumentary: no rash Neurologic: confused, disoriented, able to move extremities Ext: no edema, L AKA Hemodialysis access: R IJ tunnel catheter Subjective Date of service: 03/12/19 Interval history: The patient was seen and examined at the bedside. Objective - Vital Signs Vital signs: Vital Signs - 12hr 03/12/19 03/12/19 03/12/19 03:27 03:39 08:19 Temperature 97.3 F L 98.6 F Pulse Rate 84 86 Pulse Rate [ 82 Apical] Respiratory 18 20 20 Rate Blood Pressure 122/53 149/83 Blood Pressure [Left] O2 Sat by Pulse 97 96 100 Oximetry 03/12/19 03/12/19 10:44 13:19 Temperature 98.1 F Pulse Rate 83 81 Pulse Rate [ Apical] Respiratory 16 Rate Blood Pressure Blood Pressure 104/54 [Left] O2 Sat by Pulse 100 Oximetry - Lab 03/12/19 08:29 03/12/19 08:29 Most recent lab results Calcium 8.3 mg/dL (8.4-10.2) L 03/12/19 08:29 Phosphorus 4.80 mg/dL (2.5-4.5) H 03/12/19 08:29 Magnesium 1.70 mg/dL (1.7-2.3) 03/11/19 07:41 Medications & Allergies - Medications Allergies/Adverse Reactions: Allergies morphine Allergy (Uncoded 03/08/19 02:11) Swelling Home Medications: Home Medications Medication Instructions Recorded Confirmed Last Taken Type Aspirin 325 mg PO DAILY 08/08/13 03/08/19 Unknown History Gabapentin 300 mg PO TID 08/08/13 03/08/19 08/19/13 20:00 History Iron Ag/C/B12/Ca/Suc.acid/Stom 1 tab PO DAILY 08/08/13 03/08/19 08/19/13 19:00 History [Multigen Caplet] Loratadine [Claritin] 10 mg PO DAILY 08/08/13 03/08/19 08/19/13 11:00 History Sertraline [Zoloft] 50 mg PO DAILY 08/08/13 03/08/19 08/19/13 11:00 History Simvastatin 40 mg PO DAILY 08/08/13 03/08/19 08/19/13 11:00 History Topiramate [Topamax TAB] 50 mg PO HS 08/08/13 03/08/19 08/19/13 20:00 History carvediloL [Coreg] 25 mg PO BID 08/08/13 03/08/19 08/20/13 07:25 History hydrOXYzine HCL [Atarax] 25 mg PO TID 08/08/13 03/08/19 08/19/13 20:00 History levETIRAcetam [Keppra TAB] 500 mg PO BID 08/08/13 03/08/19 08/19/13 20:00 History Acetaminophen/Codeine [Tylenol #3] 1 tab PO Q6H PRN #20 tab 08/20/13 03/08/19 Unknown Rx Indomethacin [Indocin] 50 mg PO BID PRN 03/08/19 03/08/19 Unknown History Losartan/Hydrochlorothiazide 1 each PO QDAY 03/08/19 03/08/19 Unknown History [Losartan-Hctz 50-12.5 mg Tab] Montelukast [Singulair] 10 mg PO QPM 03/08/19 03/08/19 Unknown History Potassium Chloride [K-Dur] 10 meq PO BID 03/08/19 03/08/19 Unknown History Active Medications: Generic Name Dose Route Start Last Admin Trade Name Freq PRN Reason Stop Dose Admin Acetaminophen 650 mg 03/07/19 23:40 03/10/19 03:14 Tylenol PO 650 mg Q4H PRN Administration Pain MILD(1-3)/Fever >100.5/GRAY Aspirin 325 mg 03/08/19 10:00 03/12/19 10:45 Aspirin PO 325 mg DAILY BRIDGET Administration Bisacodyl 10 mg 03/10/19 10:52 Dulcolax PO QDAY PRN Constipation Carvedilol 25 mg 03/07/19 23:45 03/12/19 10:44 Coreg PO 25 mg BID BRIDGET Administration Epoetin Jordan 10,000 unit 03/08/19 09:14 Procrit SUB-Q TASHA PRN hemodialysis Hydromorphone HCl 0.25 mg 03/07/19 23:42 Dilaudid IV Q3H PRN Pain, Moderate (4-6) Hydroxyzine HCl 25 mg 03/08/19 08:00 03/12/19 10:55 Atarax PO 25 mg TID BRIDGET Administration Sodium Chloride 100 mls @ 999 mls/hr 03/12/19 10:00 Nacl 0.9% IV TASHA PRN Hypotension Levetiracetam 500 mg 03/07/19 23:45 03/12/19 10:45 Keppra PO 500 mg BID BRIDGET Administration Loratadine 10 mg 03/08/19 10:00 03/12/19 10:44 Claritin PO 10 mg DAILY BRIDGET Administration Niacin 500 mg 03/08/19 10:00 03/12/19 10:43 Niaspan Er PO 500 mg DAILY BRIDGET Administration Ondansetron HCl 4 mg 03/07/19 23:40 03/11/19 14:19 Zofran IV 4 mg Q8H PRN Administration Nausea And Vomiting Oxycodone/Acetaminophen 1 tab 03/07/19 23:42 03/12/19 10:55 Percocet 5/325 PO 1 tab Q6H PRN Administration Pain, Moderate (4-6) Polyethylene Glycol 17 gm 03/10/19 11:00 03/12/19 10:49 Miralax 3350 PO Not Given QDAY [facility] Pravastatin Sodium 80 mg 03/08/19 22:00 03/11/19 21:32 Pravachol PO 80 mg QHS BRIDGET Administration Sertraline HCl 25 mg 03/08/19 10:00 03/12/19 10:45 Zoloft PO 25 mg DAILY BRIDGET Administration Sodium Chloride 10 ml 03/08/19 10:00 03/12/19 10:50 Sodium Chloride Flush Syringe 10 Ml IV 10 ml BID BRIDGET Administration Sodium Chloride 10 ml 03/07/19 23:40 Sodium Chloride Flush Syringe 10 Ml IV PRN PRN LINE FLUSH Topiramate 50 mg 03/08/19 22:00 03/11/19 21:34 Topamax PO 50 mg QHS BRIDGET Administration
[2019-03-12] MEDS ORDERED: ALTEPLASE 2 MG INJ IV PRN (16:17)
--- NOTE | 2019-03-12 16:29 | Progress Note ---
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 /Acute hypoxic respiratory failure: - likely from pulmonary edema - wean off nasal cannula O2 as tolerated /ARF due to ATN/Vasomotor nephropathy, not ESRD per Dr. Dominguez - Nephrology is following, input noted==>patient is Acute renal failure, ATN, not ESR - still getting HD /Acute Metabolic encephalopathy, at baseline now, CT head w/o any acute findings /SIRS with organ dysfunction, no sepsis, no sepsis shock - because no source of infection found so far: treated with empiric abx, cultures negative, off antibiotics. /Seizure disorder Continue to Keppra /Suspected FAN: need outpatient sleep study /H/o Cardiac arrest. 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 In emergency room, her systolic blood pressure was 68/29. Patient was at [facility] and suffered 2 cardiac arrest per daughter Lety at bedside. She went to [facility] but was only there for 2-3 days prior to coming here. The Hemodialysis center sent her here instead of [facility]. She has a huge left forearm ulcer with large scab. Patient was confused on admission. * Chest x-ray: report reviewed (no acute findings) * CT abdomen IMPRESSION: 1. Low density liver lesions suspicious for metastases. No definite primary tumor is seen. 2. Extensive postoperative changes in the pelvis but no inflammatory process or hemorrhage identified. 3. Multiple incidental findings as described. * CT head IMPRESSION: 1. No focal mass, hemorrhage, hydrocephalus, or acute, large territorial infarct. Follow-up with diffusion imaging by MRI, as clinically warranted. Hospitalist Physical Gen: chronic ill appearing, NAD, Awake, Alert, Orientated to place and person HEENT: EOMI, PERRL, OP Clear Neck: supple, no adenopathy, no thyromegaly, no JVD CVS/Heart: RRR, normal S1S2, pulses present bilaterally Chest/Lungs: diminished bs bilateral, Symmetrical chest expansion, good air entry bilaterally GI/Abdomen: soft, NTND, good bowel sounds, no guarding or rebound /Bladder: no suprapubic tenderness, no CVA or paraspinal tenderness Extermity/Skin: multiple skin breakdowns, left forearm, sacrum MSK: FROM x 3, total left leg amputation Neuro: CN 2-12 grossly intact, follow all commands Psych: calm and cooperative Subjective Date of service: 03/12/19 Interval history: Patient seen and examined patient receiving HD denies any new issue, no chest pain tolerating HD Objective - Constitutional Vitals: Vital Signs - 12hr 03/12/19 03/12/19 03/12/19 08:19 10:00 10:44 Temperature 98.6 F Pulse Rate 86 86 83 Pulse Rate [ 89 Apical] Respiratory 20 18 Rate Blood Pressure 149/83 Blood Pressure [Left] O2 Sat by Pulse 100 Oximetry 03/12/19 13:19 Temperature 98.1 F Pulse Rate 81 Pulse Rate [ Apical] Respiratory 16 Rate Blood Pressure 104/54 Blood Pressure 104/54 [Left] O2 Sat by Pulse 100 Oximetry - Labs CBC & Chem 7: 03/13/19 04:05 03/13/19 04:05 Labs: Abnormal lab results 03/12/19 03/12/19 Range/Units 08:29 08:29 RBC 3.36 L (3.65-5.03) M/mm3 Hgb 8.8 L (10.1-14.3) gm/dl Hct 28.4 L (30.3-42.9) % MCH 26 L (28-32) pg RDW 17.7 H (13.2-15.2) % Carbon Dioxide 21 L (22-30) mmol/L BUN 43 H (7-17) mg/dL Creatinine 4.4 H (0.7-1.2) mg/dL Calcium 8.3 L (8.4-10.2) mg/dL Phosphorus 4.80 H (2.5-4.5) mg/dL
[2019-03-12] MEDS ORDERED: SODIUM CHLORIDE*PRIMING MACHINE ONLY FOR DIALYSIS MC ONE (16:52)
[2019-03-12] MEDS ORDERED: ALTEPLASE 2 MG INJ IV ONE (18:00)
[2019-03-12] MEDS: PRAVASTATIN 80 MG TAB PO SCH (22:58)
[2019-03-12] MEDS: TOPIRAMATE TAB 25 MG TAB PO SCH (22:58)
[2019-03-13 05:06] LABS: Hematocrit 26.6 % (30.3-42.9); Hemoglobin 8.5 gm/dl (10.1-14.3); Mean Corpuscular HGB Conc 32 % (30-34); Mean Corpuscular Volume 85 fl (79-97); Platelet Count 274 K/mm3 (140-440); Red Blood Count 3.15 M/mm3 (3.65-5.03); Red Cell Distribution Width 17.6 % (13.2-15.2)
[2019-03-13 05:26] LABS: Calcium 8.1 mg/dL (8.4-10.2)
[2019-03-13] MEDS ORDERED: SODIUM CHLORIDE 0.9% 100 ML IV PRN (08:37)
--- NOTE | 2019-03-13 09:56 | Progress Note ---
Assessment and Plan 1. Acute kidney injury: VasomotorAKI superimposed on CKD stage 4 in the setting ofhypotension/ septic shock. Most likely ATN. GIOVANNY, ANCA, Complements and SPEP are normal / negative. Renal prognosis is guarded to poor. Suspect ESRD. Avoid nephrotoxic agents. Meds dosage based on GFR. Patient is on maintenance hemodialysis since 02/08/2019. Hemodialysis: 03/08. Patient has outpatient hemodialysis chair at [facility]. Unable to dialyze yesterday due to malfunctioning catheter. D/w for possible new hemodialysis catheter. 2. FEN: Volume depletion,treated with IV fluids. Anion-gap MA,2/2 PAULA. Monitor lytes. 3. Septic shock: BP is better. Not on pressors. 4.H/o Cardiac arrest. 5. Encephalopathy. 6.Hepatic Masses. 7.Anemia: POA. PRBC for Hb below 7. Epogen with HD. Examination: General appearance: well-developed, well-nourished, appears stated age, no distress, on mittens HEENT: ATNC, PHILIPPE Neck: supple, trachea midline Respiratory: Clear to Ascultation Cardiology: regular, S1S2, no murmur Abdomen: soft, normoactive bowel sounds, not tender, obese Integumentary: no rash Neurologic: confused, disoriented, able to move extremities Ext: no edema, L AKA Hemodialysis access: R IJ tunnel catheter Subjective Date of service: 03/13/19 Interval history: The patient was seen and examined at the bedside. Objective - Vital Signs Vital signs: Vital Signs - 12hr 03/12/19 03/13/19 03/13/19 22:00 02:00 07:21 Temperature 98.6 F 97.6 F Pulse Rate 89 85 Pulse Rate [ 83 Apical] Respiratory 20 20 20 Rate Blood Pressure 100/42 Blood Pressure 107/42 [Left] O2 Sat by Pulse 100 98 95 Oximetry - Lab 03/13/19 04:05 03/13/19 04:05 Most recent lab results Calcium 8.1 mg/dL (8.4-10.2) L 03/13/19 04:05 Phosphorus 4.80 mg/dL (2.5-4.5) H 03/12/19 08:29 Magnesium 1.70 mg/dL (1.7-2.3) 03/11/19 07:41 Medications & Allergies - Medications Allergies/Adverse Reactions: Allergies morphine Allergy (Uncoded 03/08/19 02:11) Swelling Home Medications: Home Medications Medication Instructions Recorded Confirmed Last Taken Type Aspirin 325 mg PO DAILY 08/08/13 03/08/19 Unknown History Gabapentin 300 mg PO TID 08/08/13 03/08/19 08/19/13 20:00 History Iron Ag/C/B12/Ca/Suc.acid/Stom 1 tab PO DAILY 08/08/13 03/08/19 08/19/13 19:00 History [Multigen Caplet] Loratadine [Claritin] 10 mg PO DAILY 08/08/13 03/08/19 08/19/13 11:00 History Sertraline [Zoloft] 50 mg PO DAILY 08/08/13 03/08/19 08/19/13 11:00 History Simvastatin 40 mg PO DAILY 08/08/13 03/08/19 08/19/13 11:00 History Topiramate [Topamax TAB] 50 mg PO HS 08/08/13 03/08/19 08/19/13 20:00 History carvediloL [Coreg] 25 mg PO BID 08/08/13 03/08/19 08/20/13 07:25 History hydrOXYzine HCL [Atarax] 25 mg PO TID 08/08/13 03/08/19 08/19/13 20:00 History levETIRAcetam [Keppra TAB] 500 mg PO BID 08/08/13 03/08/19 08/19/13 20:00 History Acetaminophen/Codeine [Tylenol #3] 1 tab PO Q6H PRN #20 tab 08/20/13 03/08/19 Unknown Rx Indomethacin [Indocin] 50 mg PO BID PRN 03/08/19 03/08/19 Unknown History Losartan/Hydrochlorothiazide 1 each PO QDAY 03/08/19 03/08/19 Unknown History [Losartan-Hctz 50-12.5 mg Tab] Montelukast [Singulair] 10 mg PO QPM 03/08/19 03/08/19 Unknown History Potassium Chloride [K-Dur] 10 meq PO BID 03/08/19 03/08/19 Unknown History Active Medications: Generic Name Dose Route Start Last Admin Trade Name Freq PRN Reason Stop Dose Admin Acetaminophen 650 mg 03/07/19 23:40 03/10/19 03:14 Tylenol PO 650 mg Q4H PRN Administration Pain MILD(1-3)/Fever >100.5/GRAY Alteplase, Recombinant 2 mg 03/12/19 16:17 03/12/19 16:30 Cathflo IV 2 mg TASHA PRN Administration LINE FLUSH Aspirin 325 mg 03/08/19 10:00 03/12/19 10:45 Aspirin PO 325 mg DAILY BRIDGET Administration Bisacodyl 10 mg 03/10/19 10:52 Dulcolax PO QDAY PRN Constipation Carvedilol 25 mg 03/07/19 23:45 03/12/19 22:59 Coreg PO 25 mg BID BRIDGET Administration Epoetin Jordan 10,000 unit 03/08/19 09:14 03/12/19 16:57 Procrit SUB-Q 10,000 unit TASHA PRN Administration hemodialysis Hydromorphone HCl 0.25 mg 03/07/19 23:42 Dilaudid IV Q3H PRN Pain, Moderate (4-6) Hydroxyzine HCl 25 mg 03/08/19 08:00 03/12/19 22:59 Atarax PO 25 mg TID BRIDGET Administration Sodium Chloride 100 mls @ 999 mls/hr 03/12/19 16:17 Nacl 0.9% IV TASHA PRN Hypotension Sodium Chloride 100 mls @ 999 mls/hr 03/13/19 08:37 Nacl 0.9% IV TASHA PRN Hypotension Levetiracetam 500 mg 03/07/19 23:45 03/12/19 22:59 Keppra PO 500 mg BID BRIDGET Administration Loratadine 10 mg 03/08/19 10:00 03/12/19 10:44 Claritin PO 10 mg DAILY BRIDGET Administration Niacin 500 mg 03/08/19 10:00 03/12/19 10:43 Niaspan Er PO 500 mg DAILY BRIDGET Administration Ondansetron HCl 4 mg 03/07/19 23:40 03/11/19 14:19 Zofran IV 4 mg Q8H PRN Administration Nausea And Vomiting Oxycodone/Acetaminophen 1 tab 03/07/19 23:42 03/12/19 16:56 Percocet 5/325 PO 1 tab Q6H PRN Administration Pain, Moderate (4-6) Polyethylene Glycol 17 gm 03/10/19 11:00 03/12/19 10:49 Miralax 3350 PO Not Given QDAY BRIDGET Pravastatin Sodium 80 mg 03/08/19 22:00 03/12/19 22:58 Pravachol PO 80 mg QHS BRIDGET Administration Sertraline HCl 25 mg 03/08/19 10:00 03/12/19 10:45 Zoloft PO 25 mg DAILY BRIDGET Administration Sodium Chloride 10 ml 03/08/19 10:00 03/12/19 22:59 Sodium Chloride Flush Syringe 10 Ml IV 10 ml BID BRIDGET Administration Sodium Chloride 10 ml 03/07/19 23:40 Sodium Chloride Flush Syringe 10 Ml IV PRN PRN LINE FLUSH Topiramate 50 mg 03/08/19 22:00 03/12/19 22:58 Topamax PO 50 mg QHS BRIDGET Administration
--- NOTE | 2019-03-13 12:58 | Discharge Summary ---
Providers - Providers Date of Admission: 03/07/19 23:40 Date of discharge: 03/13/19 Attending physician: HIEN LIMA 03/07/19 16:21 Consult to Physician [CONS] Urgent Comment: Consulting Provider: ZE JOSUE Physician Instructions: Reason For Exam: hypotension and esrd 03/08/19 02:21 Consult to Wound/ET Nurse [CONS] Routine Reason For Exam: wound eval 03/08/19 14:51 Occupational Therapy Evaluate and Treat [CONS] Routine Comment: Reason For Exam: ADLs evaluation Physical Therapy Evaluation and Treat [CONS] Routine Comment: Reason For Exam: gait evaluation/ambulatory dysfunction 03/08/19 15:10 Consult to Physician [CONS] Routine Comment: Consulting Provider: SHAQUILLE WARREN Physician Instructions: Reason For Exam: liver mass, please check [facility] records 03/08/19 15:11 Consult to Dietitian/Nutrition [CONS] Routine Physician Instructions: Reason For Exam: Reason for Consult: Malnutrition 03/09/19 13:29 Consult to Interventional Radiology [CONS] Routine Consulting Provider: STEPHANIE SAENZ Reason For Exam: liver lesion, evaluate for biospy Place consult to:: vascular Notified:: yes Phone number called:: [phone] Was contact made?: Yes If yes, spoke with:: dior Time called:: 13:46 Primary care physician: CESIA JANG MD Hospitalization Condition: Stable Hospital course: Patient is a 78-year-old -[place]kin[place] woman with a history of 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 In emergency room, her systolic blood pressure was 68/29. Patient was at [facility] and suffered 2 cardiac arrest per daughter Lety at bedside. She went to [facility] but was only there for 2-3 days prior to coming here. The Hemodialysis center sent her here instead of [facility]. She has a huge left forearm ulcer with large scab. Patient was confused on admission. * Chest x-ray: report reviewed (no acute findings) * CT abdomen IMPRESSION: 1. Low density liver lesions suspicious for metastases. No definite primary tumor is seen. 2. Extensive postoperative changes in the pelvis but no inflammatory process or hemorrhage identified. 3. Multiple incidental findings as described. * CT head IMPRESSION: 1. No focal mass, hemorrhage, hydrocephalus, or acute, large territorial infarct. Follow-up with diffusion imaging by MRI, as clinic ally warranted. Discharge diagnosis and Mx: /Hypotension: resolved with IVF treatment. 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 /Acute hypoxic respiratory failure: - likely from pulmonary edema - wean off nasal cannula O2 as tolerated /ARF due to ATN/Vasomotor nephropathy, not ESRD per Dr. Josue - Patient is on maintenance hemodialysis since 02/08/2019. - Nephrology is following, input noted==>patient is Acute renal failure, ATN, not ESR - still getting HD, Patient planned to start outpatient hemodialysis at [facility] 03/07/2019. /Acute Metabolic encephalopathy, at baseline now, CT head w/o any acute findings /SIRS with organ dysfunction, no sepsis, no sepsis shock - because no source of infection found so far: treated with empiric abx, cultures negative, off antibiotics. /Seizure disorder Continue to Keppra /Suspected FAN: need outpatient sleep study /H/o Cardiac arrest. cont supportive care /DVT prophylaxis: Continue heparin Disposition: re-placement denied by insurance, discharged home with Hospitalist Physical Gen: chronic ill appearing, NAD, Awake, Alert, Orientated to place and person HEENT: EOMI, PERRL, OP Clear Neck: supple, no adenopathy, no thyromegaly, no JVD CVS/Heart: RRR, normal S1S2, pulses present bilaterally Chest/Lungs: diminished bs bilateral, Symmetrical chest expansion, good air entry bilaterally GI/Abdomen: soft, NTND, good bowel sounds, no guarding or rebound /Bladder: no suprapubic tenderness, no CVA or paraspinal tenderness Extermity/Skin: multiple skin breakdowns, left forearm, sacrum MSK: FROM x 3, total left leg amputation Neuro: CN 2-12 grossly intact, follow all commands Psych: calm and cooperative Disposition: [id number]/[place]-[address] [facility] Time spent for discharge: 34 minutes Core Measure Documentation - Palliative Care Palliative Care/ Comfort Measures: Not Applicable - Core Measures Any of the following diagnoses?: history only Exam - Constitutional Vitals: Temp Pulse Resp BP Pulse Ox 97.6 F 85 20 100/42 95 03/13/19 07:21 03/13/19 10:00 03/13/19 10:00 03/13/19 07:21 03/13/19 07:21 Plan Activity: up only with assistance, fall precautions Weight Bearing Status: Non-Weight Bearing Diet: renal Special Instructions: restrict fluid intake to (1.2 L per day) Follow up with: BARBI ANGEL MD [Referring] - 3-5 Days PB NINO MD [Staff Physician] - 7 Days
[2019-03-13] MEDS ORDERED: ceFAZolin/Water 2 GM/20 ML 2 GM/20 ML SYRINGE IV ONE (13:08)
[2019-03-13] MEDS ORDERED: SODIUM CHLORIDE 0.9% 250ML 250 ML ONE (13:08)
[2019-03-13] MEDS ORDERED: HEPARIN/NS 5000 UNIT/500ML 500 ML IR ONE (13:08)
[2019-03-13] MEDS ORDERED: fentaNYL 100 MCG/2 ML INJ ONE (13:08)
[2019-03-13] MEDS ORDERED: MIDAZOLAM 2 MG/2 ML INJ ONE (13:08)
[2019-03-13] MEDS ORDERED: LIDOCAINE 1%/EPINEPHRINE 1:100,000 VIAL (20 ML) INFILTRATI ONE (13:16)
[2019-03-13] MEDS: HEPARIN 10,000 UNITS/10 ML VIAL ONE ×4 (13:32→13:39)
--- NOTE | 2019-03-13 14:20 | Post Operative Note ---
Pre-op diagnosis: ESRD Post-op diagnosis: same Procedure: Right IJ Permcath Exchange with Fibrin Sheath Disruption Anesthesia: MAC, local Surgeon: JACINTA NINA Estimated blood loss: minimal Pathology: none Condition: stable Disposition: floor
[2019-03-13] MEDS: carvediloL 25 MG TAB PO SCH (14:26)
[2019-03-13] MEDS: LORATADINE (NF) 10 MG TAB PO SCH (14:26)
[2019-03-13] MEDS: levETIRAcetam 500 MG TAB PO SCH (14:26)
[2019-03-13] MEDS: hydrOXYzine HCL 25 MG TAB PO SCH (14:26)
[2019-03-13] MEDS: ASPIRIN 325 MG TAB PO SCH (14:26)
[2019-03-13] MEDS: SERTRALINE 25 MG TAB PO SCH (14:27)
[2019-03-13] MEDS: NIACIN ER 500 MG TAB PO SCH (14:27)
[2019-03-13] MEDS: POLYETHYLENE GLYCOL 3350 17 GM POWDER PO SCH (14:27)
[2019-03-13] MEDS: oxyCODONE /ACETAMINOPHEN 5-325MG TAB PO PRN (18:06)
--- NOTE | 2019-03-13 18:06 | Operative Report ---
STAFF SURGEON: Dr. Ricky Cosme. PREOPERATIVE DIAGNOSIS: End-stage renal disease. POSTOPERATIVE DIAGNOSIS: End-stage renal disease. PROCEDURE PERFORMED: 1. Right IJ PermCath exchange with fibrin sheath disruption. 2. Monitored conscious sedation for 15 minutes. COMPLICATIONS: None. ESTIMATED BLOOD LOSS: Less than 10 mL. INDICATIONS FOR PROCEDURE: This is a 38-year-old female with multiple medical problems who is currently hospitalized at [facility] who during dialysis was found to have a malfunctioning catheter. Therefore, vascular consultation was obtained for evaluation and possible intervention. The patient and the patient's family were explained all the risks, benefits and alternatives of procedure, expressed understanding and wished to proceed. DESCRIPTION OF PROCEDURE: After appropriate consent was obtained, the patient was brought back to the laboratory mechanic helper, placed on table in supine position. The right neck and chest were prepped and draped in the usual sterile fashion. Appropriate timeout was performed indicating correct patient, procedure, and site of procedure. We then began the intervention by freeing up the cuff of the existing PermCath with blunt dissection. The catheter was withdrawn several centimeters. A diagnostic venogram was performed through the catheter, which demonstrated a fibrin sheath, so a ShareGroveson wire was then placed through the catheter into the inferior vena cava. The catheter was removed and discarded. The wire was let down with three slice of Betadine-soaked gauze and then three slice of saline soaked gauze. We then proceeded to take a 12 mm balloon and placed over the wire into the SVC. We then proceeded to inflate the balloon profile and disrupt the fibrin sheath. A balloon was removed and discarded and then a 19 cm straight PermCath was placed over the wire and attempted to be placed; however, there was some difficulty advancing the catheter, so this was removed. The catheter was then exchanged for an Amplatz wire using a vertebral catheter and then a 19 cm catheter was then able to be placed over the wire into the SVC right atrial junction. The wire was removed. Both lumens sarina blood appropriately, were flushed with heparinized saline. Appropriate amount of heparin was placed in each port. The patient tolerated the procedure well. Appropriate dressing was placed. She emerged from the conscious sedation and was sent to recovery in stable condition. JOB# [id number] N/ESPERANZA
[2019-03-13 18:34] VITALS: BP 178/98
== END 2019-03-14 | disposition home health service (06) | DRG 270 ==
LOC: ED 13:18 → 4A 23:40 → 2B-ACE 03-12 18:59
PROVIDERS: ADMIT Internal Medicine; ATTEND Internal Medicine
PROC: 5A1D70Z Performance of Urinary Filtration, Intermittent, Less than 6 Hours Per Day (ICD-10-PCS; 2019-03-08)
PROC: 5A1D70Z Performance of Urinary Filtration, Intermittent, Less than 6 Hours Per Day (ICD-10-PCS; 2019-03-12)
PROC: 02PY03Z Removal of Infusion Device from Great Vessel, Open Approach (ICD-10-PCS; principal; 2019-03-13)
PROC: 02HV33Z Insertion of Infusion Device into Superior Vena Cava, Percutaneous Approach (ICD-10-PCS; 2019-03-13)
PROC: 5A1D70Z Performance of Urinary Filtration, Intermittent, Less than 6 Hours Per Day (ICD-10-PCS; 2019-03-13)
DX: T82.49XA Other complication of vascular dialysis catheter, initial encounter (principal); N17.0 Acute kidney failure with tubular necrosis; J96.01 Acute respiratory failure with hypoxia; G93.41 Metabolic encephalopathy; R65.11 Systemic inflammatory response syndrome (SIRS) of non-infectious origin with acute organ dysfunction; R53.2 Functional quadriplegia; I42.8 Other cardiomyopathies; N18.4 Chronic kidney disease, stage 4 (severe); I95.9 Hypotension, unspecified; Y83.8 Other surgical procedures as the cause of abnormal reaction of the patient, or of later complication, without mention of misadventure at the time of the procedure; E66.9 Obesity, unspecified; E11.22 Type 2 diabetes mellitus with diabetic chronic kidney disease; I12.9 Hypertensive chronic kidney disease with stage 1 through stage 4 chronic kidney disease, or unspecified chronic kidney disease; G40.909 Epilepsy, unspecified, not intractable, without status epilepticus; R16.0 Hepatomegaly, not elsewhere classified; D64.9 Anemia, unspecified; K21.9 Gastro-esophageal reflux disease without esophagitis; E78.2 Mixed hyperlipidemia; I25.10 Atherosclerotic heart disease of native coronary artery without angina pectoris; M19.90 Unspecified osteoarthritis, unspecified site; G47.33 Obstructive sleep apnea (adult) (pediatric); Z89.612 Acquired absence of left leg above knee; Z74.01 Bed confinement status; Z88.5 Allergy status to narcotic agent; Y92.89 Other specified places as the place of occurrence of the external cause; Z68.35 Body mass index [BMI] 35.0-35.9, adult; Z95.810 Presence of automatic (implantable) cardiac defibrillator; Z79.82 Long term (current) use of aspirin; Z95.5 Presence of coronary angioplasty implant and graft; Z79.899 Other long term (current) drug therapy; Z82.49 Family history of ischemic heart disease and other diseases of the circulatory system
CPT/HCPCS: 36415; 36581; 70450; 71045; 74176; 77001; 80048; 80053; 80061; 80074; 80202; 82106; 82140; 82805; 82962; 83036; 83735; 84100; 84484; 85007; 85025; 85027; 85610; 87040; 93005; 93010; G0378; A9270-GY; C1725; C1750; C1769; J0690; J0692; J0885; J1644; J2250; J2405; J2543; J2997; J3010; J3370; J7030; J7040; J7050